=== PATIENT | female | born 1985 | race African-American/Black ===

== ENCOUNTER 2020-01-09 11:31 | Emergency (ER) | payer OTHER, SELFPAY ==
[2020-01-09 12:03] VITALS: BP 129/84; PULSE 76; RESP 16; TEMP 36.2; O2SAT 100
--- NOTE | 2020-01-09 12:16 | ED.GENADULT ---
HPI - General Adult General Chief complaint: Headache Stated complaint: headache/abd pain Time Seen by Provider: 01/09/20 12:17 Source: patient and RN notes reviewed Mode of arrival: ambulatory Limitations: no limitations History of Present Illness HPI narrative: This is a 34 years old female presents to the office for an evaluation of abdominal pain for couple days. Associated with vaginal discharge, reminiscent her previous BV. She also reported migraine headache with breast tenderness. Stated, she always has breast; however it has been more tender/bigger per patient. She is sexually active with one partner. Denies concern for STD. Admits to possible , however she did not checked it. No treatment prior to arrival. Related Data Allergies Allergy/AdvReac Type Severity Reaction Status Date / Time No Known Allergies Allergy Verified 01/09/20 12:11 Review of Systems Review of Systems: Narrative: CONSTITUTIONAL: Denies fever or feeling ill EYES: Denies visual changes ENT: Denies congestion CARDIOVASCULAR: Denies chest pain, palpitation RESPIRATORY: Denies dyspnea, wheezing, cough GASTROINTESTINAL: Denies nausea, vomiting, diarrhea. Reports generalize upset stomach GENITOURINARY: Denies urinary symptoms. Reports foul discharge similary to her previous BP SKIN: Denies rash MUSCULOSKELETAL: Denies acute back pain NEUROLOGIC: Denies lightheaded. Reports Migraine without photosensivity/nausea; reports as her typical headache; not the worse headache. [facility] Past Medical History Medical History Migraine Social History Social History Gender identity (if verbalized by the patient): Female Comments At time of signature, I agree with nursing past medical, surgical, social and family history. There is no relevant family history pertinent to the presenting complaint. Exam Narrative: Exam Narrative: GENERAL: This is a well-nourished, well-developed patient, in no apparent distress. EYES: Sclera clear/white. Vision is grossly intact. EARS: External ears normal, auditory canals clear and without drainage, TMs normal without perforation. Hearing grossly intact. NOSE: External nose normal with no obvious nasal discharge, nares without redness, no rhinorrhea. THROAT: Mucous membranes moist, posterior pharynx clear. NECK: Neck supple, non-tender without lymphadenopathy, masses or thyromegaly. CARDIOVASCULAR: Regular rate and rhythm without murmurs, gallops, or rubs. RESPIRATORY: Clear to auscultation. Breath sounds equal bilaterally. No wheezes, rales, or rhonchi. GASTROINTESTINAL: Abdomen soft, non-tender, nondistended. Bowel sounds are active. No hepato-splenomegaly, or palpable masses. No guarding. : exam contract designer by nurse Dharmesh; external vaginal appears normal; no lesion/erythema/tenderness, milky-thick discharge noted; no cervical motion tenderness. SKIN: warm, intact with no suspicious lesions or rash, good texture and turgor. NEURO: awake, alert, and oriented to person, place and time. There were no obvious focal neurologic abnormalities. Steady gait [place] Coma Scale Eye Opening: Spontaneous 4 [place] Coma Scale Motor: Obeys Commands 6 [place] Coma Scale Verbal: Oriented 5 Course Vital Signs Vital signs: Vital Signs Temperature 97.1 F L 01/09/20 12:03 Pulse Rate 76 01/09/20 12:03 Respiratory Rate 16 01/09/20 12:03 Blood Pressure 129/84 01/09/20 12:03 Pulse Oximetry 100 01/09/20 12:03 Temperature 97.1 F L 01/09/20 12:03 Pulse Rate 76 01/09/20 12:03 Respiratory Rate 16 01/09/20 12:03 Blood Pressure 129/84 01/09/20 12:03 Pulse Oximetry 100 01/09/20 12:03 Medical Decision Making MDM Narrative Medical decision making narrative: Patient did not concern for STD however since I'm doing a pelvic exam; she wants to get tested; however she does not want any treatment for
== END 2020-01-09 12:50 | disposition home or self-care (01) ==
PROVIDERS: Emergency Provider Nurse Practitioner
DX: N89.8 Other specified noninflammatory disorders of vagina (principal)
CPT/HCPCS: 81025; 87491; 87591; 87661; 99204; G0463

== ENCOUNTER 2020-04-20 12:25 | Emergency (ER) | payer OTHER, SELFPAY ==
[2020-04-20 12:52] VITALS: BP 140/84; PULSE 77; RESP 20; TEMP 36.7; O2SAT 99
--- NOTE | 2020-04-20 13:13 | ED.SKABFB ---
HPI - Skin/Abscess/Foreign Bdy General Chief complaint: Skin/Abscess/Foreign Body Stated complaint: Rash Time Seen by Provider: 04/20/20 13:05 Source: patient and RN notes reviewed Mode of arrival: ambulatory Limitations: no limitations History of Present Illness HPI narrative: Patient presents today complaint of a 3-day history of painful and pruritic rash, most concentrated on the bilateral thighs. States it has been continuing to worsen since onset, to now include her chest, abdomen, and arms. She has tried no interventions for symptoms prior to arrival. States she had a nurse friend look at her rash and was told she had a herpes rash. She is here for treatment for herpes today. Denies known exposure to someone with a herpes outbreak. Denies recent illness. MD complaint: rash Related Data Allergies Allergy/AdvReac Type Severity Reaction Status Date / Time No Known Allergies Allergy Verified 04/20/20 12:52 Review of Systems Review of Systems: Narrative: CONSTITUTIONAL: Denies body aches, fever, chills, or sweats. EYES: Denies visual changes, redness, or discharge. ENT: Denies rhinorrhea, congestion, sore throat, or otalgia. CARDIOVASCULAR: Denies chest pain, palpitations, or edema. RESPIRATORY: Denies cough or dyspnea. GASTROINTESTINAL: Denies abdominal pain, nausea, vomiting, or diarrhea. GENITOURINARY: Denies dysuria or hematuria. SKIN: Denies wounds. + Rash MUSCULOSKELETAL: Denies back pain, joint pain, or myalgia. NEUROLOGIC: Denies headache, numbness, tingling, or weakness. PSYCH: Denies depression or anxiety. [facility] Social History Social History Gender identity (if verbalized by the patient): Female Comments At time of signature, I have reviewed and agree with nursing past medical, surgical, social and family history unless otherwise noted. Please see nursing chart for further information. There is no relevant family history pertinent to the presenting complaint Exam Narrative: Exam Narrative: GENERAL: Well-appearing, well-nourished, and in no acute distress. HEAD: Normocephalic, atraumatic. EYES: EOMI. No redness or drainage. Conjunctivae normal. ENT: Mucous membranes pink and moist. NECK: Normal AROM. CHEST: No respiratory distress. EXTREMITIES: Normal range of motion. No edema. SKIN: Warm, dry. Capillary refill normal. Normal skin turgor. Erythematous maculopapular rash, most dense on the bilateral upper and right lower leg. On the right lower leg, there is a patch in a scratching distribution. There are a few faint lesions to the chest and abdomen. NEURO: No focal deficits. Alert and oriented x3. Gait steady. PSYCH: Normal affect. No signs of depression or anxiety. Course Vital Signs Vital signs: Vital Signs Temperature 98.1 F 04/20/20 12:52 Pulse Rate 77 04/20/20 12:52 Respiratory Rate 20 04/20/20 12:52 Blood Pressure 140/84 04/20/20 12:52 Pulse Oximetry 99 04/20/20 12:52 Temperature 98.1 F 04/20/20 12:52 Pulse Rate 77 04/20/20 12:52 Respiratory Rate 20 04/20/20 12:52 Blood Pressure 140/84 04/20/20 12:52 Pulse Oximetry 99 04/20/20 12:52 Reviewed. Pt has been instructed to follow up with her PCP regarding her elevated blood pressure today. MDM - Skin/Abscess/Foreign Bdy Differential Diagnosis Differential diagnosis: Likely abscess of skin or subcutaneous tissue, viral exanthem, dermatophytosis, urticaria, herpes zoster, cellulitis, eczema, impetigo and contact dermatitis Critical Care Time Critical Care Time Critical Care Time: No Discharge Plan Discharge Clinical Impression: Dermatitis Patient Disposition: Home, Self-Care Condition: Stable Instructions: Dermatitis (ED) Additional Instructions: Please take the prednisone as directed. You may take Benadryl, Tylenol, ibuprofen for pain and itching. Follow-up with your doctor in 1 week if symptoms are not improving.
== END 2020-04-20 13:24 | disposition home or self-care (01) ==
PROVIDERS: Emergency Provider Nurse Practitioner
DX: L30.9 Dermatitis, unspecified (principal)
CPT/HCPCS: 99213; G0463

== ENCOUNTER 2020-06-18 19:36 | Emergency (ER) | payer OTHER, SELFPAY ==
[2020-06-18 19:49] VITALS: BP 127/94; PULSE 71; RESP 16; TEMP 37.4; O2SAT 99
--- NOTE | 2020-06-18 20:31 | ED.FEMALEGU ---
HPI - Female Genitourinary General Chief complaint: Urogenital-Female Stated complaint: Yeast Infection Time Seen by Provider: 06/18/20 20:21 Source: patient and RN notes reviewed Mode of arrival: ambulatory Limitations: no limitations History of Present Illness HPI Narrative: Patient presents today with malodorous, clear/milky vaginal discharge x3 days with burning upon urination. Reports history of frequent episodes of bacterial vaginosis. She is to use [employer] fairly frequently, but her SECURED ENTRANCE MONITOR has recently retired and she has not found a new one. She has not recently had any intercourse and does not have any concerns for sexually transmitted infections. MD elicited complaint: vaginal discharge Related Data Allergies Allergy/AdvReac Type Severity Reaction Status Date / Time No Known Allergies Allergy Verified 06/18/20 19:39 Review of Systems Review of Systems: Narrative: CONSTITUTIONAL: Denies body aches, fever, chills, or sweats. EYES: Denies visual changes, redness, or discharge. ENT: Denies rhinorrhea, congestion, sore throat, or otalgia. CARDIOVASCULAR: Denies chest pain, palpitations, or edema. RESPIRATORY: Denies cough or dyspnea. GASTROINTESTINAL: Denies abdominal pain, nausea, vomiting, or diarrhea. GENITOURINARY: Denies hematuria. Vaginal discharge, dysuria SKIN: Denies rash, itching, or wounds. MUSCULOSKELETAL: Denies back pain, joint pain, or myalgia. NEUROLOGIC: Denies headache, numbness, tingling, or weakness. PSYCH: Denies depression or anxiety. ON LICENSE OF [facility] Past Medical History Medical History (Updated 06/19/20 @ 00:00 by Darrian Barajas) Migraine Social History Social History Gender identity (if verbalized by the patient): Female Comments At time of signature, I have reviewed and agree with nursing past medical, surgical, social and family history unless otherwise noted. Please see nursing chart for further information. There is no relevant family history pertinent to the presenting complaint Exam Narrative: Exam Narrative: GENERAL: Well-appearing, well-nourished, and in no acute distress. HEAD: Normocephalic, atraumatic. EYES: EOMI. No redness or drainage. Conjunctivae normal. ENT: Mucous membranes pink and moist. NECK: Normal AROM. CHEST: No respiratory distress. Clear to auscultation. HEART: Regular rate and rhythm. No murmur appreciated. Normal peripheral pulses. ABDOMEN: Soft, nontender, nondistended, normal active bowel sounds. :Copious, significantly malodorous, cade colored vaginal discharge with mild erythema of the vaginal robins. EXTREMITIES: Normal range of motion. No edema. SKIN: Warm, dry, no rash. Capillary refill normal. Normal skin turgor. NEURO: No focal deficits. Alert and oriented x3. Gait steady. PSYCH: Normal affect. No signs of depression or anxiety. Course Course Emergency Course: We will treat patient for presumed bacterial vaginosis with oral Flagyl. Have instructed her to follow-up with an SECURED ENTRANCE MONITOR to initiate care. Vital Signs Vital signs: Vital Signs Temperature 99.3 F 06/18/20 19:49 Pulse Rate 71 06/18/20 19:49 Respiratory Rate 16 06/18/20 19:49 Blood Pressure 127/94 H 06/18/20 19:49 Pulse Oximetry 99 06/18/20 19:49 Temperature 99.3 F 06/18/20 19:49 Pulse Rate 71 06/18/20 19:49 Respiratory Rate 16 06/18/20 19:49 Blood Pressure 127/94 H 06/18/20 19:49 Pulse Oximetry 99 06/18/20 19:49 Reviewed. Pt has been instructed to follow up with her PCP regarding her elevated blood pressure today. MDM - Female Genitourinary Differential Diagnosis Differential diagnosis: Likely urinary tract infection, bacterial vaginosis, cervicitis, vaginitis and cystitis Lab Data Attestation: I reviewed the patient's lab results. Labs: Urine Glucose Negative Reference Range: Negative Urine Bilirubin Neg
== END 2020-06-18 20:37 | disposition home or self-care (01) ==
PROVIDERS: Emergency Provider Nurse Practitioner
DX: N76.0 Acute vaginitis (principal)
CPT/HCPCS: 81003; 99213; G0463

== ENCOUNTER 2020-08-26 09:58 | Emergency (ER) | payer OTHER, SELFPAY ==
[2020-08-26 10:10] VITALS: BP 139/92; PULSE 74; RESP 16; TEMP 37.2; O2SAT 100
--- NOTE | 2020-08-26 10:41 | ED.GENADULT ---
HPI - General Adult General Chief complaint: Urogenital-Female Stated complaint: abd pain/cramps Time Seen by Provider: 08/26/20 10:41 Source: patient and RN notes reviewed Mode of arrival: ambulatory Limitations: no limitations History of Present Illness HPI narrative: 35-year-old -[place] female presents with vaginal irritation and intermittent lower abdominal pain for the past 3 days. Bianca reports that she has no seen any vaginal discharge in undergarment or on tissue but has increase vaginal secretions (over wetness) after intercourse. Bianca reports last intercourse active (protective) was 3 days ago. No treatment. History of Bacterial Vaginosis. No significant pelvic pain. No dysuria. Denies fever or chills. Bianca reports no concerns for STDs, wants to be tested today. No new partners. Sexually active. No new partner. Denies unprotected intercourse and multiple partners. Exacerbating factors consist of intercourse. Denies hematuria or vaginal bleeding. Denies being , LMP 06/12/20, irregular due to history of Depo Provera. No flank pain. Denies nausea or vomiting.? Tolerating liquids well.? Remains active. The patient reports she have not been diagnosed with COVID-19. The patient reports she is not waiting for the results of a COVID-19 lab test. The patient reports she do not have fever, weakness, or fatigue. The patient reports she do not have a new or worsening cough or shortness of breath. Denies chest pain. The patient reports she do not have any rhinorrhea, congestion, sore throat, loss of taste, and diarrhea. Denies recent traveling. Denies concerns for COVID-19 or exposures been home with limited outdoor exposure except for essential household needs, work, and return home. At this time, patient is not suspected of having COVID-19. Some parts of this dictation were generated by voice recognition software and may contain typographical and/or grammatical inaccuracies. Related Data Allergies Allergy/AdvReac Type Severity Reaction Status Date / Time No Known Allergies Allergy Verified 08/26/20 10:01 Review of Systems Review of Systems: Narrative: CONSTITUTIONAL: Denies fever, chills, sweats. EYES: Denies visual changes, redness, discharge. ENT: Denies rhinorrhea, congestion, sore throat, otalgia. CARDIOVASCULAR: Denies chest pain, palpitations, edema. RESPIRATORY: Denies dyspnea, wheezing, cough. GASTROINTESTINAL: Complains of intermittent abdominal pain. Denies nausea, vomiting, diarrhea. GENITOURINARY: Complains of vaginal irritation, abnormal discharge, intermittent breast discomfort. Denies dysuria, hematuria. SKIN: Denies rash or itching. MUSCULOSKELETAL: Denies acute back pain, joint pain, or myalgia. NEUROLOGIC: Denies numbness or focal weakness. PSYCHIATRIC: Denies anxiety or depression. All systems reviewed & are unremarkable except as noted in HPI and below. [facility] Past Medical History Medical History (Updated 08/29/20 @ 15:48 by ROBY Belle) delivery delivered Migraine Seizures childhood Surgical History Surgical History (Updated 08/29/20 @ 15:48 by ROBY Belle) H/O section X2 History of axillary surgery removal of lymph nodes as a kids History of tubal ligation Family History Family History (Updated 08/29/20 @ 15:50 by ROBY Belle) Father Alive and well Mother Hypertension Social History Social History (Updated 08/29/20 @ 15:50 by ROBY Belle) Smoking status: Never smoker Tobacco type: cigarettes Second hand tobacco smoke exposure: Yes Alcohol intake: current Substance use: never Living arrangements: with family Occupation/Education: occupation Gender identity (if verbalized by the patient): Female Sexual Orientation (if Verbalized by the Patient): Straight or Heterosexual Comments At time of signature, agree with nurse past medical, surgical, social, and family histo
[2020-08-26] MEDS: AZITHROMYCIN 250 MG TABLET 1000 MG PO (11:10)
[2020-08-26] MEDS: LIDOCAINE HCL 1% LOCAL INJ 20 ML VIAL INFILTRATE (11:10)
[2020-08-26] MEDS: cefTRIAXone 250 MG VIAL IM (11:11)
== END 2020-08-26 11:22 | disposition home or self-care (01) ==
PROVIDERS: Emergency Provider Nurse Practitioner Family
DX: N76.1 Subacute and chronic vaginitis (principal); Z11.3 Encounter for screening for infections with a predominantly sexual mode of transmission
CPT/HCPCS: 81003; 81025; 87491; 87591; 87661; 96372; 99214; A9270; G0463; J0696

== ENCOUNTER 2020-11-24 12:06 | Emergency (ER) | payer OTHER, SELFPAY ==
[2020-11-24 12:20] VITALS: BP 141/83; PULSE 80; RESP 16; TEMP 37.1; O2SAT 100
--- NOTE | 2020-11-24 12:24 | ED.SKABFB ---
HPI - Skin/Abscess/Foreign Bdy General Chief complaint: Skin/Abscess/Foreign Body Stated complaint: Rash Time Seen by Provider: 11/24/20 12:24 Source: patient and RN notes reviewed Mode of arrival: ambulatory Limitations: no limitations History of Present Illness HPI narrative: 35-year-old female presents with concern for rash. Reports a patch of rash on her left shoulder, reports it spreading to her left arm and left breast. Reports small amount and rash under both breasts. Reports the rash is itchy. She denies any known triggers, history of similar rashes or eczema. Denies new perfumes, soaps, lotions, household products, personal care products, detergents. Denies any new medications. Denies difficulty breathing, swollen lips, swollen tongue, nausea, vomiting, diarrhea, fever. MD complaint: rash Related Data Allergies Allergy/AdvReac Type Severity Reaction Status Date / Time No Known Allergies Allergy Verified 11/24/20 12:28 Review of Systems Review of Systems: Narrative: CONSTITUTIONAL: Denies malaise, chills, sweats, or fever. ENT: Denies rhinorrhea, congestion, sinus pain, otalgia or sore throat swollen lips, swollen tongue CARDIOVASCULAR: Denies chest pain, palpitations, or edema. RESPIRATORY: Denies cough or dyspnea. GASTROINTESTINAL: Denies abdominal pain, nausea, vomiting, diarrhea SKIN: Reports itchy rash on her left shoulder, left arm, left breast, under both breasts MUSCULOSKELETAL: Denies myalgia. All systems reviewed & are unremarkable except as noted in HPI and below PMFSH Past Medical History Medical History (Updated 11/24/20 @ 12:30 by Ama Dubose NP) delivery delivered Migraine Seizures childhood Surgical History Surgical History (Updated 08/29/20 @ 15:48 by ROBY Belle) H/O section X2 History of axillary surgery removal of lymph nodes as a kids History of tubal ligation Family History Family History (Updated 08/29/20 @ 15:50 by ROBY Belle) Father Alive and well Mother Hypertension Social History Social History (Updated 08/29/20 @ 15:50 by ROBY Belle) Smoking status: Never smoker Tobacco type: cigarettes Second hand tobacco smoke exposure: Yes Alcohol intake: current Substance use: never Gender identity (if verbalized by the patient): Female Comments At time of signature, agree with nursing past medical, surgical, social and family history. There is no relevant family history pertinent to the presenting complaint Exam Narrative: Exam Narrative: GENERAL: Well-appearing, well-nourished, and in no acute distress. HEAD: Normocephalic, atraumatic. EYES: PERRLA, conjunctivae clear, and EOMI. ENT: Mucous membranes moist. Oropharynx without edema, erythema or lesions. NECK: Supple. No lymphadenopathy CHEST: Clear to auscultation. No respiratory distress. HEART: Regular rate and rhythm. SKIN: Warm, dry. Patches of erythematous plaque noted to the left shoulder, small patch on the left arm, very small patch on the left breast, erythema noted under bilateral breasts NEURO: Alert and oriented x3. PSYCH: Normal mood and affect Course Course Emergency Course: Patient is aware of diagnosis, understands and agrees to treatment plan. Anticipatory guidance given. Patient agrees to follow-up as directed and is aware of reasons to seek care at the emergency department. Portions of this record may have been created with voice recognition software Vital Signs Vital signs: Vital Signs Temperature 98.7 F 11/24/20 12:20 Pulse Rate 80 11/24/20 12:20 Respiratory Rate 16 11/24/20 12:20 Blood Pressure 141/83 H 11/24/20 12:20 Pulse Oximetry 100 11/24/20 12:20 Temperature 98.7 F 11/24/20 12:20 Pulse Rate 80 11/24/20 12:20 Respiratory Rate 16 11/24/20 12:20 Blood Pressure 141/83 H 11/24/20 12:20 Pulse Oximetry 100 11/24/20 12:20 Reviewed. MDM - Skin/Abscess/Foreign Bdy MDM [place]
== END 2020-11-24 12:40 | disposition home or self-care (01) ==
PROVIDERS: Emergency Provider Nurse Practitioner
DX: L25.9 Unspecified contact dermatitis, unspecified cause (principal)
CPT/HCPCS: 99213; G0463

== ENCOUNTER 2020-12-13 10:33 | Emergency (ER) | payer OTHER, SELFPAY ==
[2020-12-13 10:58] VITALS: BP 144/91; PULSE 82; RESP 22; TEMP 36.2; O2SAT 100
--- NOTE | 2020-12-13 11:12 | ED.URI ---
HPI - URI/Sore Throat General Chief Complaint: Upper Respiratory Infection Stated Complaint: Congestion,Watery Eyes Time Seen by Provider: 12/13/20 11:12 Source: patient, RN notes reviewed and old records reviewed Mode of arrival: ambulatory Limitations: no limitations History of Present Illness HPI Narrative: 35 year old female who presents to express care with complaints of sinus congestion, scratchy throat, eyes watery, frontal sinus headache and teeth hurting which developed since staying at a friends house 4 days ago. Patient states that she initially thought it was allergies and has been taking Claritin with no improvement in her symptoms. Patient states that house was very clean, no animals in the home or any exposure to any other allergens. Patient states that she had a negative COVID test yesterday at work.Patient states that she has not had any known fevers, chills or sweats, has not had any cough or chest congestions, denies any tobacco use. MD elicited complaint: rhinorrhea, nasal congestion and other (scratchy throat, frontal headache) Onset (ago): day(s) (4) Consistency: progressively worsening Severity: mild Pain scale (0-10): 3 Description of mucous: clear Able to tolerate fluids by mouth: Yes Exacerbating factors: nothing Relieving factors: nothing Associated symptoms: headache, rhinorrhea, nasal congestion and other (watery eyes) Treatments prior to arrival: other (clairitin antihistamine) Related Data Home Medications Medication Instructions Recorded Confirmed [facility] 12/13/20 loratadine [Claritin] mg 12/13/20 Allergies Allergy/AdvReac Type Severity Reaction Status Date / Time No Known Allergies Allergy Verified 11/24/20 12:28 Review of Systems Review of Systems: Narrative: CONSTITUTIONAL: Denies fever, chills, or sweats. EYES: Denies visual changes, redness, or discharge. ENT: Positive rhinorrhea, congestion, scratchy throat, no otalgia. CARDIOVASCULAR: Denies chest pain, palpitations, or edema. RESPIRATORY: Denies cough or dyspnea. GASTROINTESTINAL: Denies abdominal pain, nausea, vomiting, or diarrhea. GENITOURINARY: Denies dysuria or hematuria. SKIN: Denies rash or itching. MUSCULOSKELETAL: Denies back pain, joint pain, or myalgia. NEUROLOGIC: Positive frontal headache, no numbness, or weakness. PSYCHIATRIC: Denies anxiety or depression. All systems reviewed & are unremarkable except as noted in HPI and below PMFSH Past Medical History Medical History delivery delivered Migraine Seizures childhood Surgical History Surgical History H/O section X2 History of axillary surgery removal of lymph nodes as a kids History of tubal ligation Family History Family History Father Alive and well Mother Hypertension Social History Social History (Updated 12/15/20 @ 14:45 by Christiane Blackman NP) Smoking status: Never smoker Second hand tobacco smoke exposure: Yes Alcohol intake: current Substance use: never Living arrangements: with family Gender identity (if verbalized by the patient): Female Comments At time of signature, agree with nursing past medical, surgical, social and family history. There is no relevant family history pertinent to the presenting complaint Exam Narrative: Exam Narrative: GENERAL: Well-appearing, well-nourished, and in no acute distress. HEAD: Normocephalic, atraumatic. EYES: PERRLA and EOMI. ENT: Nares red with clear rhinorrhea no epistaxis. Mucous membranes moist.TM's normal with good light reflex, throat red with no lesions or exudates, tonsils red with enlargement, post nasal drainage present. NECK: Supple.no lymphadenopathy CHEST: Clear to auscultation. No respiratory distress.no cough noted or any dyspnea, SAO2 100% on room air. HEART: Regular rate and rhythm
== END 2020-12-13 11:54 | disposition home or self-care (01) ==
PROVIDERS: Emergency Provider Registered Nurse
DX: J06.9 Acute upper respiratory infection, unspecified (principal); J02.9 Acute pharyngitis, unspecified
CPT/HCPCS: 87081; 87880; 99213; G0463

== ENCOUNTER 2021-01-03 11:23 | Emergency (ER) | payer OTHER, SELFPAY ==
[2021-01-03 11:35] VITALS: BP 119/86; PULSE 78; RESP 16; TEMP 37.1; O2SAT 99
--- NOTE | 2021-01-03 11:51 | ED.FEMALEGU ---
HPI - Female Genitourinary General Chief complaint: Urogenital-Female Stated complaint: uti Time Seen by Provider: 01/03/21 11:46 Source: patient and RN notes reviewed Mode of arrival: ambulatory Limitations: no limitations History of Present Illness HPI Narrative: Patient presents today requesting a course of antibiotics. A week ago she left a urine sample in her doctor's office to be cleared for surgery. She was called this morning from her doctor's office and told that her urine culture came back positive for infection and was told to come to urgent care with her test results to get started on some antibiotics. She presents today with her urine culture which shows greater than 10,000 colonies of normal skin naomi/contamination. There is no culture and sensitivity noted. Patient has no symptoms. Denies hematuria, dysuria. States she is currently taking some Flagyl for bacterial vaginosis. Will repeat urinalysis today. Related Data Home Medications Medication Instructions Recorded Confirmed No Home Medications 01/03/21 01/03/21 Allergies Allergy/AdvReac Type Severity Reaction Status Date / Time No Known Allergies Allergy Verified 01/03/21 11:44 Review of Systems Review of Systems: Narrative: CONSTITUTIONAL: Denies body aches, fever, chills, or sweats. EYES: Denies visual changes, redness, or discharge. ENT: Denies rhinorrhea, congestion, sore throat, or otalgia. CARDIOVASCULAR: Denies chest pain, palpitations, or edema. RESPIRATORY: Denies cough or dyspnea. GASTROINTESTINAL: Denies abdominal pain, nausea, vomiting, or diarrhea. GENITOURINARY: Denies dysuria or hematuria. SKIN: Denies rash, itching, or wounds. MUSCULOSKELETAL: Denies back pain, joint pain, or myalgia. NEUROLOGIC: Denies headache, numbness, tingling, or weakness. PSYCH: Denies depression or anxiety. [facility] Past Medical History Medical History delivery delivered Migraine Seizures childhood Surgical History Surgical History H/O section X2 History of axillary surgery removal of lymph nodes as a kids History of tubal ligation Family History Family History Father Alive and well Mother Hypertension Social History Social History (Updated 12/15/20 @ 14:45 by Christiane Blackman NP) Smoking status: Never smoker Second hand tobacco smoke exposure: Yes Alcohol intake: current Substance use: never Gender identity (if verbalized by the patient): Female Comments At time of signature, I have reviewed and agree with nursing past medical, surgical, social and family history unless otherwise noted. Please see nursing chart for further information. There is no relevant family history pertinent to the presenting complaint Exam Narrative: Exam Narrative: GENERAL: Well-appearing, well-nourished, and in no acute distress. HEAD: Normocephalic, atraumatic. EYES: EOMI. No redness or drainage. Conjunctivae normal. ENT: Mucous membranes pink and moist. NECK: Normal AROM. CHEST: No respiratory distress. Clear to auscultation. HEART: Regular rate and rhythm. No murmur appreciated. Normal peripheral pulses. ABDOMEN: Soft, nontender, nondistended, normal active bowel sounds. EXTREMITIES: Normal range of motion. No edema. SKIN: Warm, dry, no rash. Capillary refill normal. Normal skin turgor. NEURO: No focal deficits. Alert and oriented x3. Gait steady. PSYCH: Normal affect. No signs of depression or anxiety. Course Vital Signs Vital signs: Vital Signs Temperature 98.8 F 01/03/21 11:35 Pulse Rate 78 01/03/21 11:35 Respiratory Rate 16 01/03/21 11:35 Blood Pressure 119/86 01/03/21 11:35 Pulse Oximetry 99 01/03/21 11:35 Temperature 98.8 F 01/03/21 11:35 Pulse Rate 78 01/03/21 11:35 Respiratory Rate 16 01/03/21 11:35
== END 2021-01-03 11:55 | disposition home or self-care (01) ==
PROVIDERS: Emergency Provider Nurse Practitioner
DX: Z04.89 Encounter for examination and observation for other specified reasons (principal)
CPT/HCPCS: 81003; 87086; 99213; G0463

== ENCOUNTER 2021-01-16 13:54 | Emergency (ER) | payer OTHER, SELFPAY ==
[2021-01-16 14:01] VITALS: BP 134/94; PULSE 89; RESP 16; TEMP 36.9; O2SAT 100
--- NOTE | 2021-01-16 14:06 | ED.GENADULT ---
HPI - General Adult General Chief complaint: Unspecified Stated complaint: COVID Test Time Seen by Provider: 01/16/21 14:06 Source: patient Mode of arrival: ambulatory Limitations: no limitations History of Present Illness HPI narrative: Bianca Varghese is a 35 yo female with PMH of seizures and migraine , who comes to [facility] care for an elective Covid PCR for travel at the beginning of the week. She initially requested a rapid screen but because she is asymptomatic the only testing offered would be PCR Related Data Home Medications Medication Instructions Recorded Confirmed No Home Medications 01/03/21 01/03/21 Allergies Allergy/AdvReac Type Severity Reaction Status Date / Time No Known Allergies Allergy Verified 01/03/21 11:44 Review of Systems Review of Systems: Narrative: CONSTITUTIONAL: Denies fever, chills, sweats. EYES: Denies visual changes, redness, discharge. ENT: Denies rhinorrhea, congestion, sore throat, otalgia. CARDIOVASCULAR: Denies chest pain, palpitations, edema. RESPIRATORY: Denies dyspnea, wheezing, cough GASTROINTESTINAL: Denies abdominal pain, nausea, vomiting, diarrhea. GENITOURINARY: Denies dysuria, hematuria, abnormal discharge SKIN: Denies rash or itching. NEUROLOGIC: Denies numbness, or focal weakness. PSYCHIATRIC: Denies anxiety or depression. PMF[facility] Past Medical History Medical History delivery delivered Migraine Seizures childhood Surgical History Surgical History H/O section X2 History of axillary surgery removal of lymph nodes as a kids History of tubal ligation Family History Family History Father Alive and well Mother Hypertension Social History Social History Smoking status: Never smoker Second hand tobacco smoke exposure: Yes Alcohol intake: current Substance use: never Gender identity (if verbalized by the patient): Female Comments At time of signature, I agree with nursing past medical, surgical, social and family history. There is no relevant family history pertinent to the presenting complaint. Blood pressure is elevated at this visit will refer to primary care physician Exam Narrative: Exam Narrative: GENERAL: This is a well-nourished, well-developed patient, in no distress. HEAD: normocephalic, atraumatic. EYES: PERRL. Sclera clear/white. Vision is grossly intact. EARS: External ears normal, . Hearing grossly intact. NOSE: External nose normal without nasal discharge, nares without redness, no rhinorrhea. THROAT: Mucous membranes moist, NECK: Neck supple, er CARDIOVASCULAR: Regular rate and rhythm without murmurs, gallops, or rubs. RESPIRATORY: Clear to auscultation. Breath sounds equal bilaterally. No wheezes, rales, or rhonchi. GASTROINTESTINAL: Abdomen soft, SKIN: warm, intact with no suspicious lesions or rash, good texture and turgor. NEURO: awake, alert, and oriented to person, place and time. There were no obvious focal neurologic abnormalities. Steady gait EXTREMITIES: Normal range of motion. BACK: Nontender without deformity Course Course Emergency Course: Patient here for elective Covid PCR test she plans to travel on Tuesday Vital Signs Vital signs: Vital Signs Temperature 98.5 F 01/16/21 14:01 Pulse Rate 89 01/16/21 14:01 Respiratory Rate 16 01/16/21 14:01 Blood Pressure 134/94 H 01/16/21 14:01 Pulse Oximetry 100 01/16/21 14:01 Temperature 98.5 F 01/16/21 14:01 Pulse Rate 89 01/16/21 14:01 Respiratory Rate 16 01/16/21 14:01 Blood Pressure 134/94 H 01/16/21 14:01 Pulse Oximetry 100 01/16/21 14:01 Medical Decision Making Differential Diagnosis Differential Diagnosis: Covid testing Vital Signs Vital Signs: Vital Signs Temperature 9
[2021-01-17 19:55] LABS: SARS-CoV-2 RNA PCR Negative
== END 2021-01-16 14:12 | disposition home or self-care (01) ==
PROVIDERS: Emergency Provider Nurse Practitioner
DX: Z20.822 Contact with and (suspected) exposure to COVID-19 (principal); I10 Essential (primary) hypertension
CPT/HCPCS: 99213; C9803; G0463; U0003; U0005

== ENCOUNTER 2021-02-10 18:19 | Emergency (ER) | payer OTHER, SELFPAY ==
[2021-02-10 18:26] VITALS: BP 134/86; PULSE 84; RESP 16; TEMP 37.1; O2SAT 99
--- NOTE | 2021-02-10 18:32 | ED.FEMALEGU ---
HPI - Female Genitourinary General Chief complaint: Urogenital-Female Stated complaint: uti Time Seen by Provider: 02/10/21 18:32 Source: patient and RN notes reviewed Mode of arrival: ambulatory Limitations: no limitations History of Present Illness HPI Narrative: 35-year-old female presents to the [facility] with complaints of burning with urination. Just had liposuction, butt left done in [place] on 20 January. States that she does have vaginal discharge that is rather irritating. Patient rather vague with symptoms. Denies abdominal pain, chest pain. No shortness of breath, nausea vomiting or diarrhea. Related Data Allergies Allergy/AdvReac Type Severity Reaction Status Date / Time No Known Allergies Allergy Verified 01/03/21 11:44 Review of Systems Review of Systems: All systems reviewed & are unremarkable except as noted in HPI and below Constitutional: Constitutional: Reports no additional constitutional complaints, Denies chills and Denies fatigue Cardiovascular: Cardiovascular: Reports no additional cardiovascular complaints and Denies chest pain Respiratory: Respiratory: Reports no additional respiratory complaints, Denies cough and Denies dyspnea Gastrointestinal: Gastrointestinal: Reports no additional gastrointestinal complaints, Denies abdominal pain, Denies diarrhea, Denies nausea and Denies vomiting Genitourinary: Genitourinary: Reports as per HPI, Reports dysuria, Denies pelvic pain and Reports vaginal discharge Musculoskeletal: Musculoskeletal: Reports no additional musculoskeletal complaints, Denies joint swelling and Denies muscle cramps Integumentary/Breasts: Skin/Breast: Reports system reviewed and no additional complaints, except as docu Neurologic: Reports system reviewed and no additional complaints, except as documented Psychiatric: Psychiatric: Reports no additional psychiatric complaints Allergic/Immunologic: Allergic/Immunologic: Reports no additional allergic/immunologic complaints PMFSH Past Medical History Medical History delivery delivered Migraine Seizures childhood Surgical History Surgical History H/O section X2 History of axillary surgery removal of lymph nodes as a kids History of tubal ligation Family History Family History Father Alive and well Mother Hypertension Social History Social History Smoking status: Never smoker Second hand tobacco smoke exposure: Yes Alcohol intake: current Substance use: never Gender identity (if verbalized by the patient): Female Comments At the time of my signature, I reviewed and agree with the nursing past medical, surgical, social, and family history. There is no relevant family history pertinent to the patient complaint. Exam Const: General: healthy appearing, no acute distress and alert Nutritional Appearance: well nourished Orientation/consciousness: patient oriented x3 Limitations: no limitations HENMT: Head: normal to inspection Eyes: Pupils: Equal, round and reactive pupils present Neck: Neck: normal visual inspection, no lymphadenopathy and no meningeal signs Chest: Chest palpation & inspection: normal inspection of the chest Resp: Effort & Inspection: normal respiratory effort and no use of accessory muscles Auscultation: clear to auscultation bilaterally, no rales, no rhonchi and no wheezes Cardio: Rate: regular rate Rhythm: regular rhythm : General: Yes no CVA tenderness External Female Exam: normal external appearance Speculum Exam - Vagina: normal appearance of the vagina, normal vaginal discharge and No vaginal bleeding Speculum Exam - Cervix: Cervical os closed Bimanual exam- vagina & uterus: no cervical motion tenderness Other: Chaperoned by Ashley Crowe
--- NOTE | 2021-02-10 19:18 | PC.NURSE ---
[id number] went to car to get pillow, needed due to recent surgery to use for vag. exam. 184 vag. exam set up done.
--- NOTE | 2021-02-10 19:23 | PC.NURSE ---
pharmacy was changed from [facility] to [facility] per pt request at [id number]
== END 2021-02-10 18:55 | disposition home or self-care (01) ==
PROVIDERS: Emergency Provider Nurse Practitioner
DX: N76.0 Acute vaginitis (principal)
CPT/HCPCS: 81003; 87070; 87491; 87591; 87661; 99214; G0463

== ENCOUNTER 2021-03-09 13:12 | Emergency (ER) | payer OTHER, SELFPAY ==
--- NOTE | 2021-03-09 13:14 | ED.ABDPAIN ---
HPI - Abdominal Pain General Chief Complaint: Abdominal Pain Stated Complaint: Abdominal Pain Time Seen by Provider: 03/09/21 13:14 Source: patient and RN notes reviewed History of Present Illness HPI narrative: Patient is a 35-year-old female who presents the urgent care with complaints of lower abdominal cramping/pains. Patient states is been going for 3 days. States that she has a history of BV and these are her like symptoms . Patient denies any vaginal discharge. States that she has normal urinary frequency but denies of any dysuria or hematuria. Denies of fever, chills, nausea, vomiting. States that her [employer] is currently on maternity leave and she was unable to be seen. No other acute complaints. No acute distress noted. Patient aware of the plan of care. Some parts of this dictation were generated by voice recognition software and may contain typographical and/or grammatical inaccuracies. Related Data Allergies Allergy/AdvReac Type Severity Reaction Status Date / Time No Known Allergies Allergy Verified 01/03/21 11:44 Review of Systems Review of Systems: Narrative: CONSTITUTIONAL: Denies fever, chills, or sweats. EYES: Denies visual changes, redness, or discharge. ENT: Denies rhinorrhea, congestion, sore throat, or otalgia. CARDIOVASCULAR: Denies chest pain, palpitations, or edema. RESPIRATORY: Denies cough or dyspnea. GASTROINTESTINAL: Reports of lower abdominal pain/cramping. Denies nausea, vomiting, or diarrhea. GENITOURINARY: Denies dysuria or hematuria. Reports of urinary frequency SKIN: Denies rash or itching. MUSCULOSKELETAL: Denies back pain, joint pain, or myalgia. NEUROLOGIC: Denies headache, numbness, or weakness. All other systems reviewed are negative, except as documented in HPI. [facility] Past Medical History Medical History delivery delivered Migraine Seizures childhood Surgical History Surgical History H/O section X2 History of axillary surgery removal of lymph nodes as a kids History of tubal ligation Family History Family History Father Alive and well Mother Hypertension Social History Social History (Reviewed 05/21/21 @ 14:07 by BARBARA Garcia Smoking status: Never smoker Second hand tobacco smoke exposure: Yes Alcohol intake: current Substance use: never Gender identity (if verbalized by the patient): Female Comments At the time of my signature, I reviewed and agree with the nursing past medical, surgical, social, and family history. There is no relevant family history pertinent to the patient complaint. Exam Narrative: Exam Narrative: GENERAL: This is a well-nourished, well-developed patient, in no apparent distress. HEAD: normocephalic, atraumatic. EYES: PERRL. Sclera clear/white. Vision is grossly intact. EARS: External ears normal NOSE: External nose normal with no obvious nasal discharge, nares without redness, no rhinorrhea. THROAT: Mucous membranes moist NECK: Neck supple CARDIOVASCULAR: Regular rate and rhythm without murmurs, gallops, or rubs. RESPIRATORY: Clear to auscultation. Breath sounds equal bilaterally. No wheezes, rales, or rhonchi. GASTROINTESTINAL: Abdomen soft, non-tender, nondistended. Bowel sounds are active. : Deferred vaginal exam SKIN: warm, intact with no suspicious lesions or rash, good texture and turgor. NEURO: awake, alert, and oriented to person, place and time. There were no obvious focal neurologic abnormalities. EXTREMITIES: No clubbing, cyanosis, or edema. Course Vital Signs Vital signs: Vital Signs Temperature 96.9 F L 03/09/21 13:23 Pulse Rate 82 03/09/21 13:23 Respiratory Rate 18 03/09/21 13:23 Blood Pressure 135/93 H 03/09/21 13:23 Pulse Oximetry 100 03/09/21 13:23 Temperature 96.9 F L 03/09/21 13:23
[2021-03-09 13:23] VITALS: BP 135/93; PULSE 82; RESP 18; TEMP 36.1; O2SAT 100
--- NOTE | 2021-03-09 13:45 | PC.NURSE ---
at 1337 power checker requested swab for bv to be given to pt to self swab. was given swab for bv.
--- NOTE | 2021-03-09 13:56 | PC.NURSE ---
at 1351 was given urine cup and aware of need for additional urine for test.
== END 2021-03-09 14:00 | disposition home or self-care (01) ==
PROVIDERS: Emergency Provider Nurse Practitioner Family
DX: N76.0 Acute vaginitis (principal)
CPT/HCPCS: 81003; 87070; 87491; 87591; 87661; 99214; G0463

== ENCOUNTER 2021-05-27 09:01 | Emergency (ER) | payer OTHER, SELFPAY ==
[2021-05-27 09:11] VITALS: BP 118/77; PULSE 74; RESP 16; TEMP 36.9; O2SAT 99
--- NOTE | 2021-05-27 10:03 | ED.GENADULT ---
HPI - General Adult General Chief complaint: Abdominal Pain Stated complaint: ABD PAIN Source: patient Mode of arrival: ambulatory Limitations: no limitations History of Present Illness HPI narrative: Patient is a 35-year-old -[place] female who presents to the [facility] via POV for evaluation of upper abdominal pain that has been present for 2 days. Valeria denies associated signs and symptoms. Denies taking OTC meds for symptoms. Nothing improves or worsen symptoms. She denies known exposure to sick contacts. Of note, patient reports she feels as if she has BV since her symptoms are similar to previous episodes or that she may be . She states she is more concerned about being prompting today's visit. Related Data Allergies Allergy/AdvReac Type Severity Reaction Status Date / Time No Known Allergies Allergy Verified 05/27/21 10:18 Review of Systems Review of Systems: Denies history of urinary pyelonephritis, and renal calculi. Pertinent negatives: fever, chills, sweats, change in appetite, poor p.o. intake, malaise, recent weight loss, myalgias, lymphadenopathy, headache, dizziness, STD exposure, painful intercourse, constipation, nausea, vomiting, diarrhea, abdominal cramping, dysuria, hematuria, urinary frequency/urgency, back pain, urinary incontinence, vaginal bleeding/discharge, vaginal odor, shortness of breath, chest pain, and heart palpitations/murmurs. [facility] Past Medical History Medical History delivery delivered Migraine Seizures childhood Surgical History Surgical History H/O section X2 History of axillary surgery removal of lymph nodes as a kids History of tubal ligation Family History Family History Father Alive and well Mother Hypertension Social History Social History Smoking status: Never smoker Second hand tobacco smoke exposure: Yes Alcohol intake: current Substance use: never Gender identity (if verbalized by the patient): Female Sexual Orientation (if Verbalized by the Patient): Straight or Heterosexual Comments I have reviewed and agree with the patient's past medical, surgical, social, and family hx as documented by the RN. There is no relevant family history pertinent to the presenting complaint. Exam Narrative: GENERAL: Well-appearing, well-nourished, and in no acute distress. HEAD: Normocephalic, atraumatic. No sinus tenderness or facial swelling appreciated. EYES: PERRLA and EOMI. No evidence of erythema, swelling, or drainage. ENT: Mucous membranes moist and pink. Uvula is midline without erythema and swelling. No evidence of petechial rash, cobblestoning, lesions, ulcers, erythema, swelling, exudates, peritonsillar abscess, tenting, or drooling. Breath odor and voice normal. NECK: Supple. No Lymphadenopathy or nuchal rigidity appreciated. CHEST: Bilateral lung walters are clear to auscultation. No respiratory distress. No evidence of cough or pleuritic cp upon examination. HEART: Regular rate and rhythm. No murmur, gallop, or rub heard. ABDOMEN: Soft, nontender, nondistended, normal active bowel sounds in all quadrants. No guarding. No rebound tenderness. No pulsatile or palpable abdominal mass(es). No CVAT EXTREMITIES: Normal range of motion. No edema. SKIN: Warm, dry, no rash. Excellent skin turgor. NEURO: No focal deficits. Alert and oriented x3. Course Vital Signs Vital signs: Vital Signs Temperature 98.5 F 05/27/21 09:11 Pulse Rate 74 05/27/21 09:11 Respiratory Rate 16 05/27/21 09:11 Blood Pressure 118/77 05/27/21 09:11 Pulse Oximetry 99 05/27/21 09:11 Temperature 98.5 F 05/27/21 09:11 Pulse Rate 74 05/27/21 09:11 Respiratory Rate 16 05/27/21 09:11
== END 2021-05-27 10:26 | disposition home or self-care (01) ==
PROVIDERS: Emergency Provider Nurse Practitioner Family
DX: Z71.1 Person with feared health complaint in whom no diagnosis is made (principal)
CPT/HCPCS: 81025; 99213; G0463

== ENCOUNTER 2021-08-04 14:30 | Emergency (ER) | payer OTHER, SELFPAY ==
[2021-08-04 14:38] VITALS: BP 143/90; PULSE 70; RESP 16; TEMP 37.2; O2SAT 100
--- NOTE | 2021-08-04 15:05 | ED.FEMALEGU ---
HPI - Female Genitourinary General Chief complaint: Urogenital-Female Stated complaint: UTI Time Seen by Provider: 08/04/21 14:58 Source: patient and RN notes reviewed Mode of arrival: ambulatory Limitations: no limitations History of Present Illness HPI Narrative: Bianca is a 36-year-old female patient who ambulated into the [facility]. Patient states she has thick white vaginal discharge but is chunky. Patient states she has burning and irritation with urination. Patient states she just finished treatment for MD elicited complaint: vaginal discharge Related Data Allergies Allergy/AdvReac Type Severity Reaction Status Date / Time No Known Allergies Allergy Verified 08/04/21 14:45 Review of Systems Review of Systems: CONSTITUTIONAL: Denies body aches, fever, chills, or sweats. EYES: Denies visual changes, redness, or discharge. ENT: Denies rhinorrhea, congestion, sore throat, or otalgia. CARDIOVASCULAR: Denies chest pain, palpitations, or edema. RESPIRATORY: Denies cough or dyspnea. GASTROINTESTINAL: Denies abdominal pain, nausea, vomiting, or diarrhea. GENITOURINARY: + irritation and burning with urination, _ thick white chunky vaginal discharge SKIN: Denies rash, itching, or wounds. MUSCULOSKELETAL: Denies back pain, joint pain, or myalgia. NEUROLOGIC: Denies headache, numbness, tingling, or weakness. PSYCH: Denies depression or anxiety. All systems reviewed & are unremarkable except as noted in HPI and below PMFSH Past Medical History Medical History delivery delivered Migraine Seizures childhood Surgical History Surgical History H/O section X2 History of axillary surgery removal of lymph nodes as a kids History of tubal ligation Family History Family History Father Alive and well Mother Hypertension Social History Social History Smoking status: Never smoker Second hand tobacco smoke exposure: Yes Alcohol intake: current Substance use: never Gender identity (if verbalized by the patient): Female Sexual Orientation (if Verbalized by the Patient): Straight or Heterosexual Exam Narrative: GENERAL: Well-appearing, well-nourished, and in no acute distress. HEAD: Normocephalic, atraumatic. EYES: EOMI. No redness or drainage. Conjunctivae normal. ENT: Mucous membranes pink and moist. Nares clear. No rhinorrhea. NECK: Normal AROM. Supple. MUSCULOSKELETAL: No bony tenderness. EXTREMITIES: Normal range of motion. No edema. SKIN: Warm, dry, no rash. Capillary refill normal. Normal skin turgor. NEURO: No focal deficits. Alert and oriented x3. Gait steady. PSYCH: Normal affect. No signs of depression or anxiety. Course Vital Signs Vital signs: Vital Signs Temperature 37.2 C 08/04/21 14:38 Pulse Rate 70 08/04/21 14:38 Respiratory Rate 16 08/04/21 14:38 Blood Pressure 143/90 H 08/04/21 14:38 Pulse Oximetry 100 08/04/21 14:38 Temperature 37.2 C 08/04/21 14:38 Pulse Rate 70 08/04/21 14:38 Respiratory Rate 16 08/04/21 14:38 Blood Pressure 143/90 H 08/04/21 14:38 Pulse Oximetry 100 08/04/21 14:38 Reviewed MDM - Female Genitourinary MDM Narrative Medical decision making narrative: Patient has thick white vagina discharge. UA was negative. Patient will be treated for vaginal candidiasis. Differential Diagnosis Differential diagnosis: Likely urinary tract infection and bacterial vaginosis (Vaginal yeast infection) Medical Records Attestation: I reviewed the patient's medical records. Lab Data Attestation: I reviewed the patient's lab results. Labs: Urine Glucose Negative Reference Range: Negative Urine Glucose Negative
== END 2021-08-04 15:11 | disposition home or self-care (01) ==
PROVIDERS: Emergency Provider Nurse Practitioner Family
DX: B37.3 Candidiasis of vulva and vagina (principal)
CPT/HCPCS: 81003; 99213; G0463

== ENCOUNTER 2021-08-30 15:39 | Emergency (ER) | payer OTHER, SELFPAY ==
[2021-08-30 16:35] VITALS: BP 133/88; PULSE 68; RESP 16; TEMP 36.8; O2SAT 99
--- NOTE | 2021-08-30 17:11 | ED.GENADULT ---
HPI - General Adult General Chief complaint: Skin/Abscess/Foreign Body Stated complaint: RASH Time Seen by Provider: 08/30/21 17:19 Source: patient and RN notes reviewed Mode of arrival: ambulatory Limitations: no limitations History of Present Illness HPI narrative: 36-year-old female presents with concern for itchy rash under her breasts, under her bra straps and in her antecubital space. Reports the rash has been there for 3 days, it is very itchy. She reports she has been using hydrocortisone cream without relief. She denies any other rash. Denies swollen lips, swollen tongue, trouble breathing. MD complaint: Rash Related Data Allergies Allergy/AdvReac Type Severity Reaction Status Date / Time No Known Allergies Allergy Verified 08/30/21 16:56 Review of Systems Review of Systems: CONSTITUTIONAL: Denies malaise, chills, sweats, or fever. EYES: Denies redness, or discharge. ENT: Denies rhinorrhea, congestion, swollen lips, swollen tongue CARDIOVASCULAR: Denies chest pain, palpitations, or edema. RESPIRATORY: Denies cough or dyspnea. GASTROINTESTINAL: Denies abdominal pain, nausea, vomiting SKIN: Reports itchy red rash under both breasts, under her bra straps in her antecubital area MUSCULOSKELETAL: Denies joint painor myalgia. NEUROLOGIC: Denies headache. All systems reviewed & are unremarkable except as noted in HPI and below PMFSH Past Medical History Medical History delivery delivered Migraine Seizures childhood Surgical History Surgical History H/O section X2 History of axillary surgery removal of lymph nodes as a kids History of tubal ligation Family History Family History Father Alive and well Mother Hypertension Social History Social History Smoking status: Never smoker Second hand tobacco smoke exposure: Yes Alcohol intake: current Substance use: never Gender identity (if verbalized by the patient): Female Sexual Orientation (if Verbalized by the Patient): Straight or Heterosexual Comments At time of signature, agree with nursing past medical, surgical, social and family history. There is no relevant family history pertinent to the presenting complaint Exam Narrative: GENERAL: Well-appearing, well-nourished, and in no acute distress. HEAD: Normocephalic, atraumatic. EYES: PERRLA, conjunctivae clear, and EOMI. ENT: Mucous membranes moist. Oropharynx without edema, erythema or lesions. NECK: Supple. No lymphadenopathy CHEST: Clear to auscultation. No respiratory distress. HEART: Regular rate and rhythm. SKIN: Warm, dry. Erythematous maculopapular rash noted under the breasts, on the shoulders NEURO: Alert and oriented x3. PSYCH: Normal mood and affect Course Course Emergency Course: Patient is aware of diagnosis, understands and agrees to treatment plan. Anticipatory guidance given. Patient agrees to follow-up as directed and is aware of reasons to seek care at the emergency department. Portions of this record may have been created with voice recognition software Level of Care: Express Care Visit Vital Signs Vital signs: Vital Signs Temperature 98.3 F 08/30/21 16:35 Pulse Rate 68 08/30/21 16:35 Respiratory Rate 16 08/30/21 16:35 Blood Pressure 133/88 08/30/21 16:35 Pulse Oximetry 99 08/30/21 16:35 Temperature 98.3 F 08/30/21 16:35 Pulse Rate 68 08/30/21 16:35 Respiratory Rate 16 08/30/21 16:35 Blood Pressure 133/88 08/30/21 16:35 Pulse Oximetry 99 08/30/21 16:35 Reviewed. Medical Decision Making MDM Narrative Medical decision making narrative: Does not appear at this time to be erythema multiforme, bullous, SJS, TEN; no evidence at this time to suggest RMSF, endocarditis or Lyme disease; patie
== END 2021-08-30 17:30 | disposition home or self-care (01) ==
PROVIDERS: Emergency Provider Nurse Practitioner
DX: B37.2 Candidiasis of skin and nail (principal)
CPT/HCPCS: 99213; G0463

== ENCOUNTER 2021-10-16 13:08 | Emergency (ER) | payer OTHER, SELFPAY ==
[2021-10-16 13:16] VITALS: BP 129/89; PULSE 63; RESP 18; TEMP 37.3; O2SAT 100
--- NOTE | 2021-10-16 13:18 | ED.FEMALEGU ---
HPI - Female Genitourinary General Chief complaint: Urogenital-Female Stated complaint: yeast infection Time Seen by Provider: 10/16/21 13:50 Source: patient, RN notes reviewed and old records reviewed Mode of arrival: ambulatory Limitations: no limitations History of Present Illness HPI Narrative: 36-year-old female presents to the [facility] with complaints of a yeast infection both vaginally and on her skin. States she has had this in the past and [facility] has worked for her in the past. Has not followed up with her primary in regards to this. MD elicited complaint: genital rash Related Data Allergies Allergy/AdvReac Type Severity Reaction Status Date / Time No Known Allergies Allergy Verified 08/31/21 11:43 Review of Systems Review of Systems: All systems reviewed & are unremarkable except as noted in HPI and below Constitutional: Constitutional: Reports no additional constitutional complaints, Denies chills and Denies fatigue Eyes: Eyes: Reports no additional eye complaints ENT: Reports system reviewed and no additional complaints, except as documented Cardiovascular: Cardiovascular: Reports no additional cardiovascular complaints Respiratory: Respiratory: Reports no additional respiratory complaints Gastrointestinal: Gastrointestinal: Reports no additional gastrointestinal complaints Genitourinary: Genitourinary: Reports vaginal discharge Comments: Reports rash, yeast Musculoskeletal: Musculoskeletal: Reports no additional musculoskeletal complaints Integumentary/Breasts: Skin/Breast: Reports as per HPI and Reports rash Neurologic: Reports system reviewed and no additional complaints, except as documented Psychiatric: Psychiatric: Reports no additional psychiatric complaints Allergic/Immunologic: Allergic/Immunologic: Reports no additional allergic/immunologic complaints PMFSH Past Medical History Medical History delivery delivered Migraine Seizures childhood Surgical History Surgical History H/O section X2 History of axillary surgery removal of lymph nodes as a kids History of tubal ligation Family History Family History Father Alive and well Mother Hypertension Social History Social History Smoking status: Never smoker Second hand tobacco smoke exposure: Yes Alcohol intake: current Substance use: never Gender identity (if verbalized by the patient): Female Sexual Orientation (if Verbalized by the Patient): Straight or Heterosexual Comments At the time of my signature, I reviewed and agree with the nursing past medical, surgical, social, and family history. There is no relevant family history pertinent to the patient complaint. Exam Const: General: healthy appearing, no acute distress and alert Nutritional Appearance: well nourished Orientation/consciousness: patient oriented x3 Limitations: no limitations HENMT: Head: normal to inspection Ears: external ears normal Eyes: Pupils: Equal, round and reactive pupils present Neck: Neck: normal visual inspection, no lymphadenopathy and no meningeal signs Chest: Chest palpation & inspection: normal inspection of the chest Resp: Effort & Inspection: normal respiratory effort and no use of accessory muscles Auscultation: clear to auscultation bilaterally, no crackles, no rales, no rhonchi and no wheezes Cardio: Rate: regular rate Rhythm: regular rhythm GI: GI Palp: Yes Soft to palpation and No Tenderness to palpation present (GI) : General: Yes no CVA tenderness Back/Spine/Pelvis: Back: no CVA tenderness Skin: General skin exam: normal color Wounds: no wounds Other: Dry areas of skin noted bilateral shoulders Neuro: General: patient oriented x3, moves all extremities, no meningeal signs and no foc
== END 2021-10-16 13:58 | disposition home or self-care (01) ==
PROVIDERS: Emergency Provider Nurse Practitioner
DX: B37.2 Candidiasis of skin and nail (principal)
CPT/HCPCS: 99213; G0463

== ENCOUNTER 2022-02-15 14:27 | Emergency (ER) | payer OTHER, SELFPAY ==
[2022-02-15 14:34] VITALS: BP 135/84; PULSE 85; RESP 16; TEMP 36.4; O2SAT 100
--- NOTE | 2022-02-15 15:05 | ED.FEMALEGU ---
HPI - Female Genitourinary General Chief complaint: Skin/Abscess/Foreign Body Stated complaint: Yeast Infection Time Seen by Provider: 02/15/22 15:05 Source: patient Mode of arrival: ambulatory Limitations: no limitations History of Present Illness HPI Narrative: 36-year-old female presents with complaint of yeast infection between breasts, and to left wray. Reports that she gets a yeast infection to her skin several times year. Takes Diflucan tablet times ER. Has not seen a crusher tender for this complaint. She is requesting two 150 mg Diflucan tabs. She states this is the only thing that treats her rash. States that skin is itchy. All systems reviewed and negative except as noted above. Related Data Allergies Allergy/AdvReac Type Severity Reaction Status Date / Time No Known Allergies Allergy Verified 02/15/22 14:43 Review of Systems Review of Systems: CONSTITUTIONAL: Denies fever, chills, or sweats. EYES: Denies visual changes, redness, or discharge. ENT: Denies rhinorrhea, congestion, sore throat, or otalgia. CARDIOVASCULAR: Denies chest pain, palpitations, or edema. RESPIRATORY: Denies cough or dyspnea. GASTROINTESTINAL: Denies abdominal pain, nausea, vomiting, or diarrhea. GENITOURINARY: Denies dysuria or hematuria. SKIN: Reports itchy yeast infection between breasts and to left wray. MUSCULOSKELETAL: Denies back pain, joint pain, or myalgia. NEUROLOGIC: Denies headache, numbness, or weakness. PSYCHIATRIC: Denies anxiety or depression. All other systems reviewed are negative, except as documented in HPI. [facility] Past Medical History Medical History delivery delivered Migraine Seizures childhood Surgical History Surgical History H/O section X2 History of axillary surgery removal of lymph nodes as a kids History of tubal ligation Family History Family History Father Alive and well Mother Hypertension Social History Social History Smoking status: Never smoker Second hand tobacco smoke exposure: Yes Alcohol intake: current Substance use: never Gender identity (if verbalized by the patient): Female Sexual Orientation (if Verbalized by the Patient): Straight or Heterosexual Comments At time of signature, agree with nursing past medical, surgical, social and family history. There is no relevant family history pertinent to the presenting complaint. Exam Narrative: GENERAL: This is a well-nourished, well-developed patient, in no apparent distress. HEAD: normocephalic, atraumatic. EYES: PERRL. Sclera clear/white. Vision is grossly intact. EARS: External ears normal NOSE: External nose normal NECK: Neck supple, non-tender without lymphadenopathy, masses or thyromegaly. CARDIOVASCULAR: Regular rate and rhythm without murmurs, gallops, or rubs. RESPIRATORY: Clear to auscultation. Breath sounds equal bilaterally. No wheezes, rales, or rhonchi. SKIN: warm, Dry, intact with no suspicious lesion, good texture and turgor. There is no rash to left wray concerning for fungal infection. There is a white, patchy rash between both breasts. NEURO: awake, alert, and oriented to person, place and time. There were no obvious focal neurologic abnormalities. EXTREMITIES: No joint tenderness, effusion, or edema noted. Course Course Level of Care: Express Care Visit Vital Signs Vital signs: Vital Signs Temperature 36.4 C L 02/15/22 14:34 Pulse Rate 85 02/15/22 14:34 Respiratory Rate 16 02/15/22 14:34 Blood Pressure 135/84 02/15/22 14:34 Pulse Oximetry 100 02/15/22 14:34 Oxygen Delivery Room Air 02/15/22 14:34 Temperature 36.4 C L 02/15/22 14:34 Pulse Rate 85 02/15/22 14:34 Respiratory Rate 16 02/15/22 14:34 Blood Pressure 135/84 02/15/22 14:3
== END 2022-02-15 15:25 | disposition home or self-care (01) ==
PROVIDERS: Emergency Provider Nurse Practitioner Family
DX: B37.2 Candidiasis of skin and nail (principal); I10 Essential (primary) hypertension
CPT/HCPCS: 99213; G0463

== ENCOUNTER 2023-12-19 17:45 | Emergency (ER) | payer OTHER, SELFPAY ==
[2023-12-19 18:02] VITALS: BP 116/84; PULSE 73; RESP 16; TEMP 36.3; O2SAT 100
--- NOTE | 2023-12-19 20:06 | ED.FEMALEGU ---
HPI - Female Genitourinary General Chief complaint: Urogenital-Female Stated complaint: Vaginal Problems/UTI Time Seen by Provider: 12/19/23 18:10 Source: patient, RN notes reviewed and old records reviewed Mode of arrival: ambulatory Limitations: no limitations History of Present Illness HPI Narrative: 38-year-old female presents to the [facility] with concerns for BV for an for UTI. Patient states that she has no concern for STDs states that she has been recently tested. No concerns for . Patient denies any nausea vomiting. Reports suprapubic discomfort. No vaginal discharge. No burning with urination. Patient states that she has ?a fishy smell. ? has a history of BV and requesting Diflucan as well Onset (ago): day(s) (2-3) Related Data Allergies Allergy/AdvReac Type Severity Reaction Status Date / Time No Known Allergies Allergy Verified 02/15/22 14:43 Review of Systems Review of Systems: All systems reviewed & are unremarkable except as noted in HPI and below Constitutional: Constitutional: Reports no additional constitutional complaints Eyes: Eyes: Reports no additional eye complaints ENT: Reports system reviewed and no additional complaints, except as documented Cardiovascular: Cardiovascular: Reports no additional cardiovascular complaints, Denies chest pain and Denies dyspnea Respiratory: Respiratory: Reports no additional respiratory complaints, Denies chest congestion, Denies cough and Denies dyspnea Gastrointestinal: Gastrointestinal: Reports no additional gastrointestinal complaints, Denies abdominal pain, Denies nausea and Denies vomiting Genitourinary: Genitourinary: Reports as per HPI Musculoskeletal: Musculoskeletal: Reports no additional musculoskeletal complaints Integumentary/Breasts: Skin/Breast: Reports system reviewed and no additional complaints, except as docu Neurologic: Reports system reviewed and no additional complaints, except as documented Psychiatric: Psychiatric: Reports no additional psychiatric complaints Allergic/Immunologic: Allergic/Immunologic: Reports no additional allergic/immunologic complaints PMFSH Past Medical History Medical History delivery delivered Migraine Seizures childhood Surgical History Surgical History H/O section X2 History of axillary surgery removal of lymph nodes as a kids History of tubal ligation Family History Family History Father Alive and well Mother Hypertension Social History Social History Smoking status: Never smoker Second hand tobacco smoke exposure: Yes Alcohol intake: current Substance use: never Living arrangements: with family Occupation/Education: occupation Gender identity (if verbalized by the patient): Female Sexual Orientation (if Verbalized by the Patient): Straight or Heterosexual Comments At the time of my signature, I reviewed and agree with the nursing past medical, surgical, social, and family history. There is no relevant family history pertinent to the patient complaint. Exam Const: General: cooperative, healthy appearing, comfortable, no acute distress, well developed, alert and well nourished Nutritional Appearance: well nourished Orientation/consciousness: patient oriented x3 Limitations: no limitations HENMT: Head: normal to inspection Ears: hearing grossly normal bilaterally and external ears normal Face/Nose/Sinus: Normal external nose present, Normal nares present, Normal nasal mucous membranes and turbinates present, normal facial exam and face symmetric Face and sinus: normal facial exam and face symmetric Eyes: General: appearance normal, both eyes and all related structures Alignment and Position: alignment normal Periorbital: pe
== END 2023-12-19 18:34 | disposition home or self-care (01) ==
PROVIDERS: Emergency Provider Nurse Practitioner; PCP Family Medicine
DX: N76.0 Acute vaginitis (principal)
CPT/HCPCS: 81003; 87086; 99213; G0463

== ENCOUNTER 2024-05-05 13:09 | Emergency (ER) | payer OTHER, SELFPAY ==
[2024-05-05 13:27] VITALS: BP 132/84; PULSE 87; RESP 16; TEMP 37.4; O2SAT 99
--- NOTE | 2024-05-05 13:39 | ED.FEMALEGU ---
HPI - Female Genitourinary General Chief complaint: Urogenital-Female Stated complaint: BV Time Seen by Provider: 05/05/24 13:39 Source: patient Mode of arrival: ambulatory Limitations: no limitations History of Present Illness HPI Narrative: 38-year-old female presents with complaint white vaginal discharge, vaginal odor use for 2-3 days. Patient states that her vaginal odor smells like fish . Patient requesting Flagyl for bacterial vaginosis. Also requesting Diflucan. States that Flagyl causes her to have a yeast infection. No urinary symptoms today. No concern for STI. All systems reviewed and negative except as noted above. Related Data Home Medications Medication Instructions Recorded Confirmed gabapentin 100 mg capsule 100 mg PO TID 05/05/24 05/05/24 Allergies Allergy/AdvReac Type Severity Reaction Status Date / Time No Known Allergies Allergy Verified 05/05/24 13:12 Review of Systems Review of Systems: CONSTITUTIONAL: Denies fever, chills, or sweats. EYES: Denies visual changes, redness, or discharge. ENT: Denies rhinorrhea, congestion, sore throat, or otalgia. CARDIOVASCULAR: Denies chest pain, palpitations, or edema. RESPIRATORY: Denies cough or dyspnea. GASTROINTESTINAL: Denies abdominal pain, nausea, vomiting, or diarrhea. GENITOURINARY: Denies dysuria or hematuria. Reports white vaginal discharge with odor. SKIN: Denies rash or itching. MUSCULOSKELETAL: Denies back pain, joint pain, or myalgia. NEUROLOGIC: Denies headache, numbness, or weakness. PSYCHIATRIC: Denies anxiety or depression. All other systems reviewed are negative, except as documented in HPI. [facility] Past Medical History Medical History delivery delivered Migraine Seizures childhood Surgical History Surgical History H/O section X2 History of axillary surgery removal of lymph nodes as a kids History of tubal ligation Family History Family History Father Alive and well Mother Hypertension Social History Social History Smoking status: Never smoker Second hand tobacco smoke exposure: Yes Alcohol intake: current Substance use: never Living arrangements: with family Occupation/Education: occupation Gender identity (if verbalized by the patient): Female Sexual Orientation (if Verbalized by the Patient): Straight or Heterosexual Comments At time of signature, agree with nursing past medical, surgical, social and family history. There is no relevant family history pertinent to the presenting complaint. Exam Narrative: GENERAL: This is a well-nourished, well-developed patient, in no apparent distress. HEAD: normocephalic, atraumatic. EYES: PERRL. Sclera clear/white. Vision is grossly intact. EARS: External ears normal NOSE: External nose normal NECK: Neck supple, non-tender without lymphadenopathy, masses or thyromegaly. CARDIOVASCULAR: Regular rate and rhythm without murmurs, gallops, or rubs. RESPIRATORY: Clear to auscultation. Breath sounds equal bilaterally. No wheezes, rales, or rhonchi. SKIN: warm, Dry, intact with no suspicious lesions or rash, good texture and turgor. NEURO: awake, alert, and oriented to person, place and time. There were no obvious focal neurologic abnormalities. EXTREMITIES: No joint tenderness, effusion, or edema noted. : Other: Exam deferred by patient Course Course Level of Care: Express Care Visit Vital Signs Vital signs: Vital Signs Temperature 37.4 C 05/05/24 13:27 Pulse Rate 87 05/05/24 13:27 Respiratory Rate 16 05/05/24 13:27 Blood Pressure 132/84 05/05/24 13:27 Pulse Oximetry 99 05/05/24 13:27 Oxygen Delivery Room Air 05/05/24 13:27 Temperature 37.4 C
== END 2024-05-05 13:50 | disposition home or self-care (01) ==
PROVIDERS: Emergency Provider Nurse Practitioner Family; PCP Family Medicine
DX: N76.0 Acute vaginitis (principal)
CPT/HCPCS: 99213; G0463

== ENCOUNTER 2024-08-12 09:19 | Emergency (ER) | payer OTHER, SELFPAY ==
[2024-08-12 09:29] VITALS: BP 132/87; PULSE 81; RESP 16; TEMP 37.4; O2SAT 99
--- NOTE | 2024-08-12 09:30 | ED.FEMALEGU ---
HPI - Female Genitourinary General Chief complaint: Urogenital-Female Stated complaint: yeast infection Time Seen by Provider: 08/12/24 09:31 Source: patient Mode of arrival: ambulatory Limitations: no limitations History of Present Illness HPI Narrative: Bianca is a 39-year-old female patient presenting to the clinic today with complaints of a possible yeast infection. She reports she has been having vaginal discharge for 2 days. States white clumpy discharge. History of chronic BV and chronic yeast infections. She denies any abdominal pain, pelvic pain, or flank pain. No fever or chills. Related Data Allergies Allergy/AdvReac Type Severity Reaction Status Date / Time No Known Allergies Allergy Verified 08/12/24 09:38 Review of Systems Review of Systems: Pertinent positives per HPI. Patient denies any fever, chills, rash, headache, visual changes, dizziness, cough, runny nose, sore throat, shortness of breath, chest pain, palpitations, nausea, vomiting, diarrhea, constipation, abdominal pain, or any urinary issues. PMFSH Past Medical History Medical History delivery delivered Seizures childhood Migraine Surgical History Surgical History History of axillary surgery removal of lymph nodes as a kids History of tubal ligation H/O section X2 Family History Family History Father Alive and well Mother Hypertension Social History Social History Smoking status: Never smoker Second hand tobacco smoke exposure: Yes Alcohol intake: current Substance use: never Living arrangements: with family Occupation/Education: occupation Gender identity (if verbalized by the patient): Female Sexual Orientation (if Verbalized by the Patient): Straight or Heterosexual Comments At the time of my signature, I reviewed and agree with the nursing past medical, surgical, social, and family history. There is no relevant family history pertinent to the patient complaint. Exam Narrative: General: Well-developed, well nourished, in no apparent distress Head: Normocephalic, atraumatic. Cardio: Regular rate and rhythm, s1 and s2 normal, no murmur appreciated. Resp: Clear to auscultation bilaterally, no rhonchi, rales, wheezing or rubs. Abdomen: Soft, pliable, bowel sounds present in all quadrants, non-tender to palpation, no CVAT tenderness. : Deferred Course Course Emergency Course: Portions of this record may have been created with voice recognition software. Level of Care: Express Care Visit Vital Signs Vital signs: Vital Signs Temperature 37.4 C 08/12/24 09:29 Pulse Rate 81 08/12/24 09:29 Respiratory Rate 16 08/12/24 09:29 Blood Pressure 132/87 08/12/24 09:29 Pulse Oximetry 99 08/12/24 09:29 Oxygen Delivery Room Air 08/12/24 09:29 Temperature 37.4 C 08/12/24 09:29 Pulse Rate 81 08/12/24 09:29 Respiratory Rate 16 08/12/24 09:29 Blood Pressure 132/87 08/12/24 09:29 Pulse Oximetry 99 08/12/24 09:29 Oxygen Delivery Room Air 08/12/24 09:29 Vital signs reviewed MDM - Female Genitourinary MDM Narrative Medical decision making narrative: At the time of visit patient is resting comfortably on the exam table. Patient appears to be nontoxic. Plan: Patient has vaginal discharge with chronic history BV/yeast infections. Will place the patient on Diflucan and metronidazole. Supportive measures were discussed with the patient and they voiced understanding discharge instructions and agrees to treatment plan. Return precautions reviewed Differential Diagnosis Differential diagnosis: Likely urinary tract infection, bacterial vaginosis, trichomoniasis, cervicitis, ovarian cyst, vaginitis, ruptured ovarian cyst, cyst of Bartholin's gland, cystitis and dysmenorrhea Discharge Plan Discharge Clinical Impression: Vaginal discharge Patient Disposition: Home, Self-Care Condition: Stable Instructions: Antibiotic Form, Vaginal Discharge (ED) Additional Instructions: Take the Diflucan and metronidazole as prescribed Follow-up with your OB doctor if you have further issues Patient Language: Kinyarwanda Prescriptions: New metronidazole 500 mg tablet 500 mg PO Q12H 7 Days Qty: 14 0RF fluconazole 150 mg tablet 150 mg PO ONCE Qty: 2 0RF Rx Instructions: as a single dose. May repeat in 72 hours if needed. No Action gabapentin 100 mg capsule 100 mg PO TID metronidazole 500 mg tablet 500 mg PO BID 7 Days Qty: 14 0RF fluconazole 150 mg tablet 150 mg PO Q72H Qty: 2 0RF Follow-up/Referrals: Don,Buster Germain MD [Primary Care Provider] - Time of Disposition: 09:39 Quality NIHSS Nursing Documentation ED NIHSS nursing documentation: reviewed/agree
== END 2024-08-12 09:49 | disposition home or self-care (01) ==
PROVIDERS: Emergency Provider Nurse Practitioner Family; PCP Family Medicine
DX: N89.8 Other specified noninflammatory disorders of vagina (principal)
CPT/HCPCS: 99213; G0463

== ENCOUNTER 2024-12-05 10:06 | Emergency (ER) | payer OTHER, SELFPAY ==
[2024-12-05 10:15] VITALS: BP 133/87; PULSE 77; RESP 16; TEMP 36.6; O2SAT 100
--- NOTE | 2024-12-05 10:15 | ED_ITS ---
HPI - Female Genitourinary General Chief complaint: Urogenital-Female Stated complaint: BV Time Seen by Provider: 12/05/24 10:36 Source: patient and RN notes reviewed Mode of arrival: ambulatory Limitations: no limitations History of Present Illness HPI Narrative: 39 year old female presents with concern for BV. She reports several day history of fishy smelling vaginal discharge that is cloudy and milky. She d enies vaginal itching. Denies concern for STDs. Denies abnormal vaginal bleeding. Reports history of BV MD elicited complaint: vaginal discharge Related Data Home Medications ?Medication ?Instructions ?Recorded ?Confirmed ?Last Taken ?Type gabapentin 100 mg capsule 100 mg PO DAILY 12/05/24 12/05/24 Unknown History ketorolac 10 mg tablet 10 mg PO DAILY 12/05/24 12/05/24 Unknown History methylprednisolone 4 mg tablets in 4 mg PO DAILY 12/05/24 12/05/24 Unknown History a dose pack prednisone 20 mg tablet 20 mg PO DAILY 12/05/24 12/05/24 Unknown History Allergies Allergy/AdvReac Type Severity Reaction Status Date / Time No Known Allergies Allergy Verified 12/05/24 10:14 Review of Systems Review of Systems: CONSTITUTIONAL: Denies malaise, chills, sweats, or fever. CARDIOVASCULAR: Denies chest pain, palpitations, or edema. RESPIRATORY: Denies cough or dyspnea. GASTROINTESTINAL: Denies abdominal pain, nausea, vomiting, diarrhea GENITOURINARY: Denies dysuria, frequency, urgency, suprapubic pressure. Denies flank pain or hematuria. Reports milky, fishy smelling vaginal discharge SKIN: Denies rash or itching. MUSCULOSKELETAL: Denies back pain or myalgia. All systems reviewed & are unremarkable except as noted in HPI and below PMFSH Past Medical History Medical History delivery delivered Seizures childhood Migraine Surgical History Surgical History History of axillary surgery removal of lymph nodes as a kids History of tubal ligation H/O section X2 Family History Family History Father Alive and well Mother Hypertension Social History Social History (Reviewed 08/12/24 @ 09:32 by DEVI Callahan Smoking status: Never smoker Second hand tobacco smoke exposure: Yes Alcohol intake: current Substance use: never Living arrangements: with family Occupation/Education: occupation Gender identity (if verbalized by the patient): Female Sexual Orientation (if Verbalized by the Patient): Straight or Heterosexual Comments At time of signature, agree with nursing past medical, surgical, social and family history. There is no relevant family history pertinent to the presenting complaint Exam Narrative: GENERAL: Well-appearing, well-nourished, and in no acute distress. HEAD: Normocephalic. EYES: PERRLA, conjunctivae clear. NECK: Supple. No lymphadenopathy CHEST: Clear to auscultation. No respiratory distress. HEART: Regular rate and rhythm. SKIN: Warm, dry, no rash. NEURO: Alert and oriented x3. PSYCH: Normal mood and affect Course Course Emergency Course: Patient is aware of diagnosis, understands and agrees to treatment plan. Anticipatory guidance given. Patient agrees to follow-up as directed and is aware of reasons to seek care at the emergency department. Portions of this record may have been created with voice recognition software Level of Care: Express Care Visit Vital Signs Vital signs: Reviewed. MDM - Female Genitourinary MDM Narrative Medical decision making narrative: Exam findings and UA show no acute concerns or changes; patient is non-toxic appearing and is in no distress. Patient is appropriate for outpatient treatment and follow-up. Differential Diagnosis Differential diagnosis: Likely urinary tract infection and cystitis Critical Care Time Critical Care Time Critical Care Time: No Discharge Plan Discharge Clinical Impression: Problematic vaginal discharge Patient Disposition: Home Condition: Stable Instructions: Antibiotic Form, Bacterial Vaginosis (ED) Additional Instructions: 1) Please follow-up with your primary care doctor in the next 1-2 days. 2) If you have any worsening of symptoms or any other urgent concerns please go to the ER. 3) Please take medications as prescribed and continue taking your home medications as usual. 4) Please read and follow information included in discharge instructions. Patient Language: Nepali Prescriptions: New metronidazole 500 mg tablet 500 mg PO BID 7 Days Qty: 14 0RF No Action gabapentin 100 mg capsule 100 mg PO DAILY ketorolac 10 mg tablet 10 mg PO DAILY methylprednisolone 4 mg tablets,dose pack 4 mg PO DAILY prednisone 20 mg tablet 20 mg PO DAILY Follow-up/Referrals: Don,Buster Germain MD [Primary Care Provider] - Time of Disposition: 10:45
== END 2024-12-05 10:52 | disposition home or self-care (01) ==
PROVIDERS: Emergency Provider Nurse Practitioner; PCP Family Medicine
DX: N89.8 Other specified noninflammatory disorders of vagina (principal)
CPT/HCPCS: 99213; G0463

== ENCOUNTER 2025-01-17 11:45 | Emergency (ER) | payer OTHER, SELFPAY ==
[2025-01-17 11:51] VITALS: BP 148/93; PULSE 78; RESP 16; TEMP 37.4; O2SAT 100
--- NOTE | 2025-01-17 12:09 | ED.EYEPROB ---
HPI - Eye Problem General Chief complaint: Eye Problems Stated complaint: TOOTH ACHE / EYE PROBLEMS Source: patient, RN notes reviewed and old records reviewed Mode of arrival: ambulatory Limitations: no limitations History of Present Illness HPI Narrative: 39-year-old female presents to the [facility] with right lower dental pain, as well as swelling to the eyelids. Patient reports that she has a cavity, to the most posterior molar. Has been trying to get in with a dental provider and they keep cancelling on her. Patient states that she went to a new/slough which, used possibly different glue and new eye lashes, had them removed but continues to have itching and mild swelling to the eyelids. Denies any blurry vision or change in vision. No discharge. Related Data Allergies Allergy/AdvReac Type Severity Reaction Status Date / Time No Known Allergies Allergy Verified 01/17/25 12:00 Review of Systems Review of Systems: All systems reviewed & are unremarkable except as noted in HPI and below Constitutional: Constitutional: Reports no additional constitutional complaints Eyes: Eyes: Reports as per HPI ENT: Reports as per HPI Cardiovascular: Cardiovascular: Reports no additional cardiovascular complaints, Denies chest pain and Denies dyspnea Respiratory: Respiratory: Reports no additional respiratory complaints, Denies chest congestion, Denies cough and Denies dyspnea Musculoskeletal: Musculoskeletal: Reports no additional musculoskeletal complaints Integumentary/Breasts: Skin/Breast: Reports system reviewed and no additional complaints, except as docu PMFSH Past Medical History Medical History delivery delivered Seizures childhood Migraine Surgical History Surgical History History of axillary surgery removal of lymph nodes as a kids History of tubal ligation H/O section X2 Family History Family History Father Alive and well Mother Hypertension Social History Social History Smoking status: Never smoker Second hand tobacco smoke exposure: Yes Alcohol intake: current Substance use: never Living arrangements: with family Occupation/Education: occupation Gender identity (if verbalized by the patient): Female Sexual Orientation (if Verbalized by the Patient): Straight or Heterosexual Comments At the time of my signature, I reviewed and agree with the nursing past medical, surgical, social, and family history. There is no relevant family history pertinent to the patient complaint. Exam Const: General: cooperative, healthy appearing, comfortable, no acute distress, well developed, alert and well nourished Nutritional Appearance: well nourished Orientation/consciousness: patient oriented x3 Limitations: no limitations HENMT: Head: normal to inspection Ears: hearing grossly normal bilaterally, external ears normal, TM's normal bilaterally, EAC's normal, mastoids normal and no periauricular adenopathy Mouth: Yes Normal oral and palatal mucosa present, Yes lip normal, Yes tongue normal and Yes moist mucous membranes Teeth and gingiva: poor dentition and other (Right posterior molar caries noted) Throat: posterior oropharynx normal, uvula midline and no uvular edema Eyes: General: appearance normal, both eyes and all related structures Alignment and Position: alignment normal Eyelids: eyelid abnormality (Bilateral mild swelling without erythema) Conjunctivae: conjunctivae normal Pupils: Equal, round and reactive pupils present Neck: Neck: normal visual inspection, full ROM, no lymphadenopathy and no meningeal signs Chest: Chest palpation & inspection: normal inspection of the chest Resp: Effort & Inspection: normal respiratory effort and able to speak in complete sentences Auscultation: clear to auscultation bilaterally, no crackles, no rales, no rhonchi and no wheezes Cardio: Rate: regular rate Skin: General skin exam: normal color and no rashes or lesions noted Neuro: General: patient oriented x3, gait normal, moves all extremities and no meningeal signs Cognition (Neuro): normal cognition Speech: normal speech Gait exam (Neuro): Normal gait present Extrem: General: normal to inspection, full ROM, capillary refill normal and normal gait Psych: Appearance: grossly normal and well kempt Mental Status: mental status grossly normal Speech and movement: Normal speech and movement present and Clear speech present Affect: normal affect Attitude: cooperative Course Course Level of Care: Express Care Visit Vital Signs Vital signs: Vital Signs Temperature 99.3 F 01/17/25 11:51 Pulse Rate 78 01/17/25 11:51 Respiratory Rate 16 01/17/25 11:51 Blood Pressure 148/93 H 01/17/25 11:51 Pulse Oximetry 100 01/17/25 11:51 Oxygen Delivery Room Air 01/17/25 11:51 Temperature 99.3 F 01/17/25 11:51 Pulse Rate 78 01/17/25 11:51 Respiratory Rate 16 01/17/25 11:51 Blood Pressure 148/93 H 01/17/25 11:51 Pulse Oximetry 100 01/17/25 11:51 Oxygen Delivery Room Air 01/17/25 11:51 Reviewed MDM - Eye Problem MDM Narrative Medical decision making narrative: Patient sitting in exam room. Nontoxic, vitals stable. Patient presents for dental discomfort and eyelid issues. Discussed [id number] treatments. Patient is appropriate for outpatient treatment with close follow-up Discharge instructions reviewed with patient, as well as provided in writing per nursing staff. The instructions also include specific and strict return/GO TO THE ER as well as f/u information. All questions have been answered, and the patient deny any further questions with discharge and discharge plan. Some parts of this dictation were generated by voice recognition software and may contain typographical and/or grammatical inaccuracies. Differential Diagnosis Differential diagnosis: Likely corneal abrasion, conjunctivitis and other (Abscess, dental caries) Critical Care Time Critical Care Time Critical Care Time: No Discharge Plan Discharge Clinical Impression: Irritation of eyelid, Dental caries Patient Disposition: Home Condition: Stable Instructions: Antibiotic Form, Toothache (ED), Eyelid Swelling (ED) Additional Instructions: The most important part of your care is follow up with Primary care provider. Take Benadryl 25 mg every 8 hours for itching Take Zyrtec every day Use eye ointment as prescribed Avoid hot showers, Take cool showers. Hot showers will make rashes worse Apply cool compresses every 2-3 hours for 15 minutes Go to the ER for new or worsening symptoms such as shortness of breath. Patient Language: German Prescriptions: New amoxicillin 875 mg tablet 875 mg PO Q12H Qty: 20 0RF erythromycin 5 mg/gram (0.5 %) ointment 0.5 inch EACH EYE TID Qty: 3.5 0RF fluconazole 150 mg tablet 150 mg PO ONCE Qty: 1 0RF Rx Instructions: as a single dose Follow-up/Referrals: Don,Buster Germain MD [Primary Care Provider] - 1 Week (express care follow up) Stand Alone Forms: Work/School Release IP Time of Disposition: 12:19
== END 2025-01-17 12:26 | disposition home or self-care (01) ==
PROVIDERS: Emergency Provider Nurse Practitioner; PCP Family Medicine
DX: K04.7 Periapical abscess without sinus (principal); H02.846 Edema of left eye, unspecified eyelid; H02.843 Edema of right eye, unspecified eyelid
CPT/HCPCS: 99213; G0463

== ENCOUNTER 2025-04-17 12:50 | Emergency (ER) | payer OTHER, SELFPAY ==
[2025-04-17 12:57] VITALS: BP 131/83; PULSE 82; RESP 16; TEMP 36.6; O2SAT 100
--- NOTE | 2025-04-17 13:05 | ED_ITS ---
HPI - Wound/Laceration General Chief Complaint: Extremity Injury, Lower Stated Complaint: Stepped on a nail / Thrush Time Seen by Provider: 04/17/25 13:05 Source: patient Mode of arrival: ambulatory Limitations: no limitations History of Present Illness HPI narrative: 39 yo F presents with c/o white spots to tongue and coming off all stringy. States prone to getting yeast. Also stepped on syd nail 2 days ago and wants tetanus updated. all systems reviewed and negative except as noted above. Related Data Allergies Allergy/AdvReac Type Severity Reaction Status Date / Time No Known Allergies Allergy Verified 01/17/25 12:00 [facility] Past Medical History Medical History delivery delivered Seizures childhood Migraine Surgical History Surgical History History of axillary surgery removal of lymph nodes as a kids History of tubal ligation H/O section X2 Family History Family History Father Alive and well Mother Hypertension Social History Social History Smoking status: Never smoker Second hand tobacco smoke exposure: Yes Alcohol intake: current Substance use: never Living arrangements: with family Occupation/Education: occupation Gender identity (if verbalized by the patient): Female Sexual Orientation (if Verbalized by the Patient): Straight or Heterosexual Comments At time of signature, agree with nursing past medical, surgical, social and family history. There is no relevant family history pertinent to the presenting complaint. Exam Narrative: GENERAL: This is a well-nourished, well-developed patient, in no apparent distress. HEAD: normocephalic, atraumatic. EYES: PERRL. Sclera clear/white. Vision is grossly intact. EARS: External ears normal, auditory canals clear and without drainage, TMs normal without perforation. Hearing grossly intact. NOSE: External nose normal with no obvious nasal discharge, nares without redness, no rhinorrhea. THROAT: Mucous membranes moist, posterior pharynx clear. NECK: Neck supple, non-tender without lymphadenopathy, masses or thyromegaly. CARDIOVASCULAR: Regular rate and rhythm without murmurs, gallops, or rubs. RESPIRATORY: Clear to auscultation. Breath sounds equal bilaterally. No wheezes, rales, or rhonchi. SKIN: warm, Dry, intact with no suspicious lesions or rash, good texture and turgor. NEURO: awake, alert, and oriented to person, place and time. There were no obvious focal neurologic abnormalities. EXTREMITIES: No joint tenderness, effusion, or edema noted. Course Course Level of Care: Express Care Visit Vital Signs Vital signs: Vital Signs Temperature 36.6 C 04/17/25 12:57 Pulse Rate 82 04/17/25 12:57 Respiratory Rate 16 04/17/25 12:57 Blood Pressure 131/83 04/17/25 12:57 Pulse Oximetry 100 04/17/25 12:57 Oxygen Delivery Room Air 04/17/25 12:57 Temperature 36.6 C 04/17/25 12:57 Pulse Rate 82 04/17/25 12:57 Respiratory Rate 16 04/17/25 12:57 Blood Pressure 131/83 04/17/25 12:57 Pulse Oximetry 100 04/17/25 12:57 Oxygen Delivery Room Air 04/17/25 12:57 Reviewed MDM - Wound/Laceration MDM Narrative Medical decision making narrative: no exam findings concerning for oral thrush. Patient insisted that she be treated with an antifungal for yeast to mouth. Will prescribe nystatin. No puncture injury was noted to left foot. Will update tetanus. Discharge Plan Discharge Clinical Impression: Candidiasis of mouth Puncture wound of foot, left Qualifiers: Encounter type: initial encounter Qualified Code(s): S91.332A - Puncture wound without foreign body, left foot, initial encounter Patient Disposition: Home Condition: Stable Instructions: Oral Candidiasis (ED) Patient Language: Burkinan Prescriptions: New nystatin 100,000 unit/mL suspension 6 ml PO QID 10 Days Qty: 240 0RF Rx Instructions: swish and swallow Follow-up/Referrals: UNKNOWN,DOCTOR [Primary Care Provider] Time of Disposition: :14
[2025-04-17] MEDS: TETANUS,DIPHTHERIA,AC PERTUSSIS ADULT (0.5 ML) BOOSTRIX IM (13:18)
== END 2025-04-17 13:23 | disposition home or self-care (01) ==
PROVIDERS: Emergency Provider Nurse Practitioner Family
DX: B37.0 Candidal stomatitis (principal); S91.332A Puncture wound without foreign body, left foot, initial encounter; W45.0XXA Nail entering through skin, initial encounter; Z23 Encounter for immunization
CPT/HCPCS: 90471; 90715; 99213; G0463

== ENCOUNTER 2025-07-17 12:18 | Emergency (ER) | payer SELFPAY ==
--- NOTE | 2025-07-17 12:21 | ED_ITS ---
HPI - General Adult General Chief complaint: Abdominal Pain Stated complaint: abdomen pain Time Seen by Provider: 07/17/25 12:21 Source: patient Mode of arrival: ambulatory Limitations: no limitations History of Present Illness HPI narrative: Pt is a 40 y/o female presenting with c/o abdominal pain. Reports pain to LLQ and L. lower back with associated urinary frequency and nausea. Sx began yesterday--immediately after deep penetration during vaginal intercourse. No concern for STI or . NO N,V,D. No vaginal bleeding. LBM was yesterday and 'normal'. NO additional complaints. Related Data Home Medications ?Medication ?Instructions ?Recorded ?Confirmed ?Last Taken ?Type gabapentin 100 mg capsule mg 07/17/25 Unknown History Allergies Allergy/AdvReac Type Severity Reaction Status Date / Time No Known Allergies Allergy Verified 07/17/25 12:30 Review of Systems Review of Systems: CONSTITUTIONAL: Denies body aches, fever, chills, or sweats. EYES: Denies visual changes, redness, or discharge. ENT: Denies rhinorrhea, congestion, sore throat, or otalgia. CARDIOVASCULAR: Denies chest pain, palpitations, or edema. RESPIRATORY: Denies cough or dyspnea. GASTROINTESTINAL: Reports abdominal pain, nausea, denies vomiting, or diarrhea. GENITOURINARY: Reports urinary frequency, denies dysuria or hematuria. SKIN: Denies rash, itching, or wounds. MUSCULOSKELETAL: reports L. lower back pain, denies joint pain, or myalgia. NEUROLOGIC: Denies headache, numbness, tingling, or weakness. PSYCH: Denies depression or anxiety. All systems reviewed & are unremarkable except as noted in HPI and below PMFSH Past Medical History Medical History delivery delivered Seizures childhood Migraine Surgical History Surgical History History of axillary surgery removal of lymph nodes as a kids History of tubal ligation H/O section X2 Family History Family History Father Alive and well Mother Hypertension Social History Social History Smoking status: Never smoker Second hand tobacco smoke exposure: Yes Alcohol intake: current Substance use: never Living arrangements: with family Occupation/Education: occupation Gender identity (if verbalized by the patient): Female Sexual Orientation (if Verbalized by the Patient): Straight or Heterosexual Exam Narrative: GENERAL: Well-appearing, well-nourished, uncomfortable and in no acute distress. HEAD: Normocephalic, atraumatic. EYES: EOMI. No redness or drainage. Conjunctivae normal. ENT: Mucous membranes pink and moist. NECK: Normal AROM. Supple. CHEST: No respiratory distress. Clear to auscultation. HEART: Regular rate and rhythm. No murmur appreciated. Normal peripheral pulses. ABDOMEN: Soft, nondistended, normal active bowel sounds. +LLQ tenderness with palpation, No CVAT MUSCULOSKELETAL: No bony tenderness. EXTREMITIES: Normal range of motion. No edema. SKIN: Warm, dry, no rash. Capillary refill normal. Normal skin turgor. NEURO: No focal deficits. Alert and oriented x3. Gait steady. PSYCH: Normal affect. No signs of depression or anxiety. Course Course Emergency Course: Given her reported sx, physical exam findings and limited access to diagnostics in the [facility] setting, I recommended she be transferred to ER of her choice for further diagnostic work up. Pt requested to be transferred to [facility] via POV. Pt is aware of NPO status,go straight to ER. Level of Care: Express Care Visit Vital Signs Vital signs: Vital Signs Temperature 97.9 F 07/17/25 12:28 Pulse Rate 88 07/17/25 12:28 Respiratory Rate 18 07/17/25 12:28 Blood Pressure 145/95 H 07/17/25 12:28 Pulse Oximetry 100 07/17/25 12:28 Oxygen Delivery Room Air 07/17/25 12:28 Temperature 97.9 F 07/17/25 12:28 Pulse Rate 88 07/17/25 12:28 Respiratory Rate 18 07/17/25 12:28 Blood Pressure 145/95 H 07/17/25 12:28 Pulse Oximetry 100 07/17/25 12:28 Oxygen Delivery Room Air 07/17/25 12:28 Transfer Transfered to: [facility] Transportation: Other (POV) Transfer rationale: further diagnostic work up Accepting physician: Hatch Transfer comments: Verbal report to MARCELINA Vance Medical Decision Making MDM Narrative Medical decision making narrative: PT aware of NPO status, go straight to ER. Vital Signs Vital Signs: Vital Signs Temperature 97.9 F 07/17/25 12:28 Pulse Rate 88 07/17/25 12:28 Respiratory Rate 18 07/17/25 12:28 Blood Pressure 145/95 H 07/17/25 12:28 Pulse Oximetry 100 07/17/25 12:28 Oxygen Delivery Room Air 07/17/25 12:28 Temperature 97.9 F 07/17/25 12:28 Pulse Rate 88 07/17/25 12:28 Respiratory Rate 18 07/17/25 12:28 Blood Pressure 145/95 H 07/17/25 12:28 Pulse Oximetry 100 07/17/25 12:28 Oxygen Delivery Room Air 07/17/25 12:28 Lab Data Labs: Lab Results 07/17/25 Range/Units 12:36 POC Urine Color Yellow POC Urine Clarity Clear POC Urine pH 7.0 POC Ur Specif [place] 1.020 POC Urine Protein Negative (Negative) POC Ur Glucose (UA) Negative (Negative) POC Urine Ketones Negative (Negative) POC Urine Blood Negative (Negative) POC Urine Nitrite Negative (Negative) POC Urine Bilirubin Negative (Negative) POC Urine Urobilinogen 0.2 POC U Leukocyte Esteras Negative (Negative) Discharge Plan Discharge Clinical Impression: Abdominal pain, LLQ, Urinary frequency, Nausea, Elevated blood pressure reading in office without diagnosis of hypertension Patient Disposition: Acute Care Hospital Condition: Stable Patient Language: Djiboutian Prescriptions: No Action gabapentin 100 mg capsule Follow-up/Referrals: Don,Buster Germain MD [Primary Care Provider, Unknown] Time of Disposition: 13:08
[2025-07-17 12:28] VITALS: BP 145/95; PULSE 88; RESP 18; TEMP 36.6; O2SAT 100
[2025-07-17 12:43] LABS: EDUAAPPEAR Clear; EDUABILI Negative (Negative); EDUABLOOD Negative (Negative); EDUACOLOR1 Yellow; EDUAGLUCOSE Negative (Negative); EDUAKETONE Negative (Negative); EDUALEUKO Negative (Negative); EDUANITRATE Negative (Negative); EDUAPH 7.0; EDUAPROTEIN Negative (Negative); EDUASPGRAVITY 1.020; EDUAUROBILI 0.2
== END 2025-07-17 13:13 | disposition short-term general hospital (02) ==
PROVIDERS: Emergency Provider Registered Nurse; PCP Family Medicine
DX: R10.32 Left lower quadrant pain (principal); R35.0 Frequency of micturition; R11.0 Nausea; R03.0 Elevated blood-pressure reading, without diagnosis of hypertension
CPT/HCPCS: 81003; 99212; G0463

== ENCOUNTER 2025-07-27 17:04 | Emergency (ER) | payer SELFPAY ==
[2025-07-27 17:16] VITALS: BP 124/68; PULSE 77; RESP 20; TEMP 37.3; O2SAT 100
--- NOTE | 2025-07-27 17:16 | ED_ITS ---
HPI - URI/Sore Throat General Chief Complaint: Upper Respiratory Infection Stated Complaint: sore throat patient presents to the [facility] with complaints of vaginal yeast infection that began after taking antibiotics after recent emergency room visit. Patient was referred to the emergency room after being evaluated here 1st at the [facility] patient unsure of what antibiotic that she was put on but noted that she gets yeast infections after any antibiotic usage. Patient noted also over the last couple days has had a white film and on taste in her mouth. Does have some soreness in her throat and in the sides of her cheek. Denies cold symptoms, pain with swallowing, fever, chills, body aches Related Data Home Medications ?Medication ?Instructions ?Recorded ?Confirmed ?Last Taken ?Type gabapentin 100 mg capsule mg 07/17/25 Unknown History Allergies Allergy/AdvReac Type Severity Reaction Status Date / Time No Known Allergies Allergy Verified 07/27/25 17:10 Review of Systems Constitutional: Constitutional: Reports as per HPI, Denies chills, Denies fatigue, Denies fever(s) and Denies weakness ENT: Reports as per HPI and Reports sore throat Comments: film and odd taste in mouth Cardiovascular: Cardiovascular: Reports no additional cardiovascular complaints Respiratory: Respiratory: Reports no additional respiratory complaints Gastrointestinal: Gastrointestinal: Reports as per HPI, Denies abdominal pain, Denies diarrhea, Denies nausea and Denies vomiting Genitourinary: Genitourinary: Reports as per HPI, Denies abnormal vaginal bleeding, Denies hematuria, Denies nocturia, Denies genital lesions, Denies dy suria, Denies pelvic pain, Denies flank pain, Denies urinary incontinence and Reports vaginal discharge Musculoskeletal: Musculoskeletal: Reports no additional musculoskeletal complaints Integumentary/Breasts: Skin/Breast: Reports system reviewed and no additional complaints, except as docu Neurologic: Reports system reviewed and no additional complaints, except as documented Psychiatric: Psychiatric: Reports no additional psychiatric complaints Endocrine: Endocrine: Reports no additional endocrine complaints Hematologic/Lymphatic: Hematologic/Lymphatic: Reports no additional hematologic/lymphatic complaints Allergic/Immunologic: Allergic/Immunologic: Reports no additional allergic/immunologic complaints PMFSH Past Medical History Medical History delivery delivered Seizures childhood Migraine Surgical History Surgical History History of axillary surgery removal of lymph nodes as a kids History of tubal ligation H/O section X2 Family History Family History Father Alive and well Mother Hypertension Social History Social History Smoking status: Never smoker Second hand tobacco smoke exposure: Yes Alcohol intake: current Substance use: never Living arrangements: with family Occupation/Education: occupation Gender identity (if verbalized by the patient): Female Sexual Orientation (if Verbalized by the Patient): Straight or Heterosexual Exam Const: General: healthy appearing and no acute distress Nutritional Appearance: well nourished Orientation/consciousness: patient oriented x3 Limitations: no limitations HENMT: Mouth: No Normal oral and palatal mucosa present, Yes moist mucous membranes and Yes Abnormal oral and palatal mucosa present erythematous and white patches Throat: posterior oropharynx normal Neck: Neck: normal visual inspection and no lymphadenopathy Resp: Effort & Inspection: normal respiratory effort Cardio: Rate: regular rate : Other: declines exam Skin: General skin exam: normal color Rashes: no rashes Wounds: no wounds Neuro: General: patient oriented x3 Speech: normal speech Gait exam (Neuro): Normal gait present Psych: Mental Status: mental status grossly normal Affect: normal affect Attitude: cooperative Course Course Level of Care: Express Care Visit MDM - URI/Sore Throat MDM Narrative Medical decision making narrative: recent antibiotic use The patient was evaluated by myself in the express care. History is obtained from patient who is an independent historian and physical exam was performed. Available medical records were reviewed at this time. Exam findings show no acute concerns or changes; patient is non-toxic appearing and is in no distress. Patient is appropriate for outpatient treatment and follow-up. I have evaluated and discussed social determinants of health with the patient that could potentially impact subsequent diagnosis and treatment plans. Differential diagnosis and treatment plan were discussed with the patient. Patient agrees with discussion and after shared medical decision making agrees with plan of care. All questions were answered to the patient's satisfaction. Differential Diagnosis Differential diagnosis: Likely bronchitis, pharyngitis and other ( thrush, vaginal yeast infection) Medical Records Attestation: I reviewed the patient's medical records. Lab Data Attestation: I reviewed the patient's lab results. Discharge Plan Discharge Clinical Impression: Candidiasis of mouth, Vaginal yeast infection Patient Disposition: Home Condition: Stable Instructions: Antibiotic Form, Oral Candidiasis (ED), Yeast Infection (ED) Patient Language: Luxembourger Prescriptions: New fluconazole 150 mg tablet 150 mg PO Q72H Qty: 2 0RF clotrimazole 10 mg hayley 10 mg mucous membrane TID Qty: 30 0RF No Action gabapentin 100 mg capsule Follow-up/Referrals: Don,Buster Germain MD [Primary Care Provider, Unknown] Time of Disposition: 17:34
[2025-07-27 17:23] LABS: EDSTREPNEGPOS1 Negative (Negative)
[2025-07-27 17:27] LABS: EDSTREPNEGPOS1 Negative (Negative)
[2025-07-27 17:28] LABS: EDSTREPNEGPOS1 Negative (Negative)
[2025-07-27 17:30] LABS: EDSTREPNEGPOS1 Negative (Negative)
[2025-07-27 17:31] LABS: EDSTREPNEGPOS1 Negative (Negative)
== END 2025-07-27 17:37 | disposition home or self-care (01) ==
PROVIDERS: Emergency Provider Nurse Practitioner Family; PCP Family Medicine
DX: B37.0 Candidal stomatitis (principal); B37.31 Acute candidiasis of vulva and vagina
CPT/HCPCS: 87880; 99213; G0463